=== PATIENT | female | born 1930 | race Caucasian/White ===

== ENCOUNTER 2017-01-21 14:06 | Observation (INO) ==
--- OUTSIDE RECORDS SUMMARY | 2017-01-21 14:21 | External Medical Summary | Referral Summary ---
:1930 Author Organization [facility] [place] [address] Care Team Providers Name Role Phone Emory Segundo Primary Care Physician Encounter [facility] Date(s): 07/29/14 - 07/29/14 [facility] [place] [phone] [place] Discharge Disposition: 01-Home or Self Care Attending Physician: Emory Segundo MD Admitting Physician: Emory Segundo MD Vital Signs No data available for this section Problem List Condition Effective Dates Status Health Status Informant Allergic rhinitis(Confirmed) Active Abscess or cellulitis, toe(Confirmed) Active Cellulitis and abscess of Active toe(Confirmed) Chicken pox(Confirmed) Active Enthesopathy of ankle and tarsus, Active unspecified(Confirmed) Hay fever(Confirmed) Active Hematuria(Confirmed) Active High cholesterol(Confirmed) Active Hypertension(Confirmed) Active Hypertriglyceridemia(Confirmed) Active Measles(Confirmed) Active Metatarsalgia of right foot(Confirmed) Active Mumps(Confirmed) Active Osteoarthritis(Confirmed) Active Osteoporosis(Confirmed) Active Other hammer toe (acquired)(Confirmed) Active Pneumonia(Confirmed) Active Recurrent UTIs(Confirmed) Active Seropositive rheumatoid Active arthritis(Confirmed) Trigonitis(Confirmed) Active Urethral stenosis(Confirmed) Active Urethral stricture(Confirmed) Active Allergies, Adverse Reactions, Alerts No Known Allergies Medications Adalat CC 30 mg oral tablet, extended release See Instructions, TAKE 1 TABLET (30MG) BY ORAL ROUTE EVERY DAY, # 60 unknown unit, 2 Refill(s), eRx:[id number], TAKE 1 TABLET (30MG) BY ORAL ROUTE EVERY DAY Start Date: 08/04/14 Status: Orderedalendronate 70 mg oral tablet 70 mg 1 tabs, Oral, qWeek, 8 oz plain water, at least 30 mins before first food , beverage, or medication of the day. upright 30 mins., # 5 tabs, 2 Refill(s), Pharmacy: [facility] [id number], 1 tabs Oral qWeek,Instr:8 oz plain water, at least 30 m... Start Date: 01/22/15 Status: Orderedatenolol 50 mg oral tablet 1/2 tabs, Oral, Daily, 0 Refill(s) Start Date: 01/09/15 Status: OrderedFiberCon 625 mg oral tablet See Instructions, take 1 daily BID, 0 Refill(s) Start Date: 07/07/13 Status: Orderedfolic acid 0.8 mg oral tablet 1.6 mg 2 tabs, Oral, Daily, 0 Refill(s) Start Date: 09/11/14 Status: Orderedgemfibrozil 600 mg oral tablet See Instructions, TAKE 1 TABLET BY MOUTH TWICE A DAY. NEEDS APPT WITH PCP PRIOR TO REFILL, # 60 tabs, 5 Refill(s), eRx: [facility] [id number], TAKE 1 TABLET BY MOUTH TWICE A DAY. NEEDS APPT WITH PCP PRIOR TO REFILL Start Date: 08/04/14 Status: OrderedImodium A-D See Instructions, 2 mg Oral 2 hours after breakfast, 0 Refill(s) Start Date: 07/07/13 Status: Orderedmethotrexate 25 mg/mL injectable solution 10 mg, IntraMuscular, qWeek, 0 Refill(s) Start Date: 01/14/15 Status: OrderedVitamin D3 2,000 Intl_Units, Oral, Daily, 0 Refill(s) Start Date: 07/25/14 Status: Ordered Results No data available for this section Immunizations Vaccine Date Refusal Reason influenza virus vaccine, inactivated 12/16/14 influenza virus vaccine, live 11/05/12 influenza virus vaccine, live 12/02/11 Procedures Procedure Date Related Diagnosis Body Site cysto, 3rd collagen implant 07/22/09 cysto, 2nd collagen implant 06/29/09 cysto, 1st collagen implant 06/15/09 Cystoscopy, urethral calibration, and dilatation 10/01/07 hydrodistention, and SLT laser vaporation 10/01/07 cyst, hydrodistention, calbration 2007 Cystourethroscopy, and urethral calibration 05/10/00 cyst, hydrodistention, calbration 2000 Hysterectomy 1960 removal of ganglion Thyroidectomy Social History Social History Type Response Smoking Status Former smoker; Type: Cigarettes; Tobacco use per day: Less than Pack; Number of years: 45; Started at age: 21; Stopped at age: 66 Assessment and Plan Extracted from: Title: Ambulatory Patient Education Author: Emory Segundo MD Date: Family Medicine Cellulitis Cellulitis is an infection of the skin and the tissue beneath it. The infected area is usually red and tender. Cellulitis occurs most often in the arms and lower legs. CAUSES Cellulitis is caused by bacteria that enter the skin through cracks or cuts in the skin. The most common types of bacteria that cause cellulitis are Staphylococcus and Streptococcus. SYMPTOMS Redness and warmth. Swelling. Tenderness or pain. Fever. DIAGNOSIS Your caregiver can usually determine what is wrong based on a physical exam. Blood tests may also be done. TREATMENT Treatment usually involves taking an antibiotic medicine. HOME CARE INSTRUCTIONS Take your antibiotics as directed. Finish them even if you start to feel better. Keep the infected arm or leg elevated to reduce swelling. Apply a warm cloth to the affected area up to 4 times per day to relieve pain. Only take [id number] or prescription medicines for pain, discomfort , or fever as directed by your caregiver. Keep all follow-up appointments as directed by your caregiver. SEEK MEDICAL CARE IF: You notice red streaks coming from the infected area. Your red area gets larger or turns dark in color. Your bone or joint underneath the infected area becomes painful after the skin has healed. Your infection returns in the same area or another area. You notice a swollen bump in the infected area. You develop new symptoms. SEEK IMMEDIATE MEDICAL CARE IF: You have a fever. You feel very sleepy. You develop vomiting or diarrhea. You have a general ill feeling (malaise ) with muscle aches and pains. MAKE SURE YOU: Understand these instructions. Will watch your condition. Will get help right away if you are not doing well or get worse. Document Released: 11/02/2005 Document Revised: 07/24/2012 Document Reviewed: 04/09/2012 ExitCare Patient Information 2014 [employer]. No follow up information was provided. Extracted from: Title: Office Visit Note Author: Emory Segundo MD Date: 07/29/14 Assessment/Plan Abscess or cellulitis, toe Continue with the present treatment. Will follow up on Monday of next week. If the infection has cleared then she may be able to start the new medication that Dr. Ayon wants her to start taking. Ordered: Office Visit Level 3 Est 25027
--- OUTSIDE RECORDS SUMMARY | 2017-01-21 14:22 | External Medical Summary | Referral Summary ---
:1930 Author Organization [facility] Address [address] [place] [address] [place] [phone] Care Team Providers Name Role Phone Emory Segundo Primary Care Physician Encounter [facility] Date(s): 07/08/14 - 07/08/14 [facility] [address] [place] [address] [place] [phone] [place] Discharge Diagnosis: Recurrent UTI Discharge Disposition: 01-Home or Self Care Attending Physician: Yaw Brambila JR, MD Admitting Physician: Yaw Brambila JR, MD Referring Physician: Emory Segundo MD Vital Signs Most recent to oldest [Reference Range]: 1 Peripheral Pulse Rate [60-100 bpm] 60 bpm (07/08/14 11:27 AM) Blood Pressure [90-140/60-90 mmHg] 130/72 mmHg (07/08/14 11:27 AM) SpO2 96 % (07/08/14 11:27 AM) Problem List Condition Effective Dates Status Health [...] DAY, # 60 unknown unit, 2 Refill(s), eRx:[facility] [id number], TAKE 1 TABLET (30MG) BY ORAL ROUTE EVERY DAY Start Date: 08/04/14 Status: Orderedalendronate 70 mg oral tablet 70 mg 1 tabs, Oral, qWeek, 8 oz plain water, at least 30 mins before first food , beverage, or medication of the day. upright 30 mins., # 5 tabs, 2 Refill(s) Start Date: 01/09/15 Status: Orderedatenolol 50 mg oral tablet 1/2 [...] REFILL, # 60 tabs, 5 Refill(s), eRx: [facility] [id number], TAKE 1 TABLET BY MOUTH TWICE A DAY. NEEDS APPT WITH PCP PRIOR TO REFILL Start Date: 08/04/14 Status: OrderedImodium A-D See Instructions, 2 mg Oral 2 hours after breakfast, 0 Refill(s) Start Date: 07/07/13 Status: Orderedmethotrexate 25 mg/mL injectable solution 12.5 mg, IntraMuscular, qWeek, 0 Refill(s) Start Date: 01/14/15 Status: OrderedVitamin D3 2,000 Intl_Units, Oral, Daily, 0 Refill(s) Start Date: 07/25/14 Status: Ordered Results Urinalysis Most recent to oldest [Reference Range]: 1 UA Color Yellow (07/08/14 11:25 AM) UA Appear Sl Cloudy (07/08/14 11:25 AM) UA pH [5.0-8.0] 6.0 (07/08/14 11:25 AM) UA Leuk Est [Negative] Trace *ABN* (07/08/14 11:25 AM) UA Nitrite [Negative] Positive *ABN* (07/08/14 11:25 AM) UA Protein [Negative] Negative (07/08/14 11:25 AM) UA Glucose [Negative] Negative (07/08/14 11:25 AM) UA Ketones [Negative] Negative (07/08/14 11:25 AM) UA Urobilinogen 0.2 mg/dL (07/08/14 11:25 AM) UA Bili [Negative] Negative (07/08/14 11:25 AM) UA Blood Negative (07/08/14 11:25 AM) UA Spec Grav [1.003-1.030] 1.015 (07/08/14 11:25 AM) Type Clean Catch (07/08/14 11:25 AM) UA WBC [0-4] 2-4 (07/08/14 11:25 AM) UA RBC [0-2] None seen (07/08/14 11:25 AM) Epithelial Cells 2-5 (07/08/14 11:25 AM) UA Bacteria Numerous *ABN* (07/08/14 11:25 AM) Microbiology Reports TEST:Urine Culture STATUS:Auth (Verified) BODY SITE: SOURCE:Urine COLLECTED DATE/TIME:07/08/14 11:25 AMUrine CultureCitrobacter freundii >100,000 cfu/ml ORGANISM:Citrobacter freundii Immunizations Vaccine Date Refusal Reason influenza virus [...] Extracted from: Title: Ambulatory Patient Education Author: Yaw Brambila JR, MD Date: 07/08/14 Follow Up With: Where: When: Emory Segundo [address] [place] [address] [address]; Via [place], [place] [id number] Business (1) Within 3 to 5 days Comments: Follow Up With: Where: When: Yaw Brambila [address]; [facility], [place] [id number] Business (1) In 6 months 01/07/2015 Comments: Extracted from: Title: Office Visit Note Author: Yaw Brambila JR, MD Date: 07/08/14 Assessment/Plan Recurrent UTI Urinalysis ordered today. There is no rebound blood cells present. There is few white blood cells. There is bacteria present. Will wait for the report of urine culture done todanette english, and if urine culture is negative for infection I will see her again in 6 months otherwise it infection is present will treat accordingly. Drink plenty of fluids. 15 minute face to face visit with 2/3 of the visit devoted to counseling. Ordered: Office Visit Level 3 Est 35945 Orders: Urine Culture
--- OUTSIDE RECORDS SUMMARY | 2017-01-21 14:22 | External Medical Summary | Referral Summary ---
:1930 Author Organization [facility], Rhe[facility] Address [address] [place] [address] [place] [phone] Care Team Providers Name Role Phone Sanya Emory Jessica Primary Care Physician Encounter [facility] [id number] Date(s): 11/06/14 - 11/06/14 [facility], [address] [place] [phone] [place] Discharge Diagnosis: Encounter for long-term (current) use of high-risk medication Discharge Diagnosis: Osteoporosis Discharge Diagnosis: Seropositive rheumatoid arthritis of multiple sites Discharge Disposition: 01-Home or Self Care Attending Physician: Silvia Ayon MD Admitting Physician: Silvia Ayon MD Vital Signs Most recent to oldest [Reference Range]: 1 Peripheral Pulse Rate [60-100 bpm] 87 bpm (11/06/14 3:02 PM) Blood Pressure [90-140/60-90 mmHg] 162/83 mmHg *HI* (11/06/14 3:02 PM) Problem List Condition Effective Dates Status Health [...] ROUTE EVERY DAY, # 60 unknown unit, 4 Refill(s), eRx:[facility] [id number], TAKE 1 TABLET (30MG) BY ORAL ROUTE EVERY DAY Start Date: 04/13/15 Status: Orderedalendronate 70 mg oral tablet See Instructions, 1 TABS ORAL QWEEK,INSTR:8 OZ PLAIN WATER, AT LEAST 30 MINS BEFORE FIRST FOOD, BEVERAGE, OR MEDICATION OF THE DAY. UPRIGHT 30 MINS., # 5 tabs, 2 Refill(s), eRx: [facility] [id number], 1 TABS ORAL QWEEK,INSTR:8 OZ PLAIN WATER, AT... Start Date: 04/23/15 Status: Orderedatenolol 50 mg oral tablet 1/2 tabs, Oral, Daily, 0 Refill(s) Start Date: 01/09/15 Status: OrderedFiberCon 625 mg oral tablet See Instructions, take 1 daily BID, 0 Refill(s) Start Date: 07/07/13 Status: Orderedfolic acid 0.8 mg oral tablet 1.6 mg 2 tabs, Oral, Daily, 0 Refill(s) Start Date: 09/11/14 Status: Orderedgemfibrozil 600 mg oral tablet See Instructions, 1 TABS ORAL BID,INSTR:LAST FILL. PT. NEEDS AN APPT., # 60 tabs , eRx: [facility] [id number], 1 TABS ORAL BID,INSTR:LAST FILL. PT. NEEDS AN APPT. Start Date: 05/11/15 Status: OrderedImodium A-D See Instructions, 2 mg Oral 2 hours after breakfast, 0 Refill(s) Start Date: 07/07/13 Status: Orderedmethotrexate 2.5 mg oral tablet See Instructions, 4 TABS ORAL QWEEK, # 20 tabs, 3 Refill(s), Pharmacy: [facility] [id number], please note change in dose and disregard prior script. deactivate prior dose. Thank you., 4 TABS ORAL QWEEK Start Date: 04/23/15 Status: OrderedVitamin D3 2,000 Intl_Units, Oral, Daily, 0 Refill(s) Start Date: 07/25/14 Status: Ordered Results Hematology Most recent to oldest [Reference Range]: 1 WBC [4.8-10.8 10*3/uL] 6.1 10*3/uL (11/06/14 3:41 PM) RBC [4.00-5.20] 3.53 *LOW* (11/06/14 3:41 PM) Hgb [12.0-16.0 gm/dL] 11.0 gm/dL *LOW* (11/06/14 3:41 PM) Hct [37.0-47.0 %] 33.6 % *LOW* (11/06/14 3:41 PM) MCV [82.0-99.0 fL] 95.2 fL (11/06/14 3:41 PM) MCH [27.0-32.0 pg] 31.2 pg (11/06/14 3:41 PM) MCHC [32.0-36.0 gm/dL] 32.7 gm/dL (11/06/14 3:41 PM) RDW [11.5-14.5 %] 17.4 % *HI* (11/06/14 3:41 PM) Platelet [150-400 10*3/uL] 356 10*3/uL (11/06/14 3:41 PM) MPV [8.8-14.8 fL] 9.5 fL (11/06/14 3:41 PM) Immature Granulocytes [0.0-1.0 %] 0.3 % (11/06/14 3:41 PM) Neutrophils [51-75 %] 61 % (11/06/14 3:41 PM) Lymphocytes [20-46 %] 24 % (11/06/14 3:41 PM) Monocytes [4-11 %] 11 % (11/06/14 3:41 PM) Eosinophils [0-4 %] 4 % (11/06/14 3:41 PM) Basophils [0-2 %] 1 % (11/06/14 3:41 PM) Neutro Absolute [1.90-7.00 10*3] 3.71 10*3 (11/06/14 3:41 PM) Lymph Absolute [0.80-3.30 10*3] 1.44 10*3 (11/06/14 3:41 PM) [place] Absolute [0.30-1.00 10*3] 0.64 10*3 (11/06/14 3:41 PM) Eos Absolute [0.00-0.50 10*3] 0.26 10*3 (11/06/14 3:41 PM) Baso Absolute [0.00-0.20 10*3] 0.04 10*3 (11/06/14 3:41 PM) Chemistry Most recent to oldest [Reference Range]: 1 Sodium Lvl [135-144 mEq/L] 141 mEq/L (11/06/14 3:41 PM) Potassium Lvl [3.5-5.2 mEq/L] 4.4 mEq/L (11/06/14 3:41 PM) Chloride [99-111 mEq/L] 106 mEq/L (11/06/14 3:41 PM) CO2 [22-31 mEq/L] 24 mEq/L (11/06/14 3:41 PM) AGAP [3-20] 11 (11/06/14 3:41 PM) BUN [10-20 mg/dL] 21 mg/dL *HI* (11/06/14 3:41 PM) Glucose Lvl [70-99 mg/dL] 135 mg/dL *HI* (11/06/14 3:41 PM) Creatinine Lvl [0.57-1.11 mg/dL] 1.11 mg/dL (11/06/14 3:41 PM) eGFR [>60 mL/min] 47 mL/min 1 *ABN* (11/06/14 3:41 PM) Calcium Lvl [8.9-10.5 mg/dL] 9.6 mg/dL (11/06/14 3:41 PM) Albumin Lvl [3.4-4.8 gm/dL] 4.4 gm/dL (11/06/14 3:41 PM) Total Protein [6.2-8.1 gm/dL] 7.3 gm/dL (11/06/14 3:41 PM) Globulin [1.8-4.0 gm/dL] 2.9 gm/dL (11/06/14 3:41 PM) ALT [0-55 U/L] 30 U/L (11/06/14 3:41 PM) AST [5-34 U/L] 43 U/L *HI* (11/06/14 3:41 PM) Alk Phos [40-150 U/L] 126 U/L (11/06/14 3:41 PM) Bili Total [0.2-1.2 mg/dL] 0.4 mg/dL (11/06/14 3:41 PM) 1Result Comment: Multiply eGFR results by 1.21 for race. Immunizations Vaccine Date Refusal Reason influenza virus [...] 66 Assessment and Plan Extracted from: Title: Office Visit Note Author: Silvia Ayon MD Date: 11/06/14 Assessment/Plan 1.Seropositive rheumatoid arthritis of multiple sites She is improved. By history, she she may have some mild continued active disease. I will check a CRP today. We will make a small adjustmen t of methotrexate to15 mg. continue folic acid. Ordered: BD Bone Density DEXA Axial Skeleton C-Reactive Protein (CRP) CBC w/ Differential Comprehensive Metabolic Panel 2.Osteoporosis We will repeat her bone density and discuss a follow appointment. Ordered: BD Bone Density DEXA Axial Skeleton 3.Encounter for long-term (current) use of high-risk medication I will check her blood counts and liver tests today. Otherwise we will toxicity noted. Follow-up in 2 months.
--- OUTSIDE RECORDS SUMMARY | 2017-01-21 14:22 | External Medical Summary | Referral Summary ---
:1930 Author Organization [facility], [facility] Address [address] [place] [address] [place] [phone] Care Team Providers Name Role Phone Segundo Emory Lopez Primary Care Physician Encounter [facility] Date(s): 01/14/16 - 01/14/16 [facility] Rhe[facility] [address] [place] [address] [place] [phone] [place] Discharge Diagnosis: Other rheumatoid arthritis with rheumatoid factor of multiple sites Discharge Disposition: 01-Home or Self Care Attending Physician: Silvia Ayon MD Admitting Physician: Silvia Ayon MD Vital Signs Most recent to oldest [Reference Range]: 1 Peripheral Pulse Rate [60-100 bpm] 68 bpm (01/14/16 2:42 PM) Blood Pressure [90-140/60-90 mmHg] 141/65 mmHg *HI* (01/14/16 2:42 PM) Problem List Condition Effective Dates Status [...] Osteoporosis(Confirmed) Active Other hammer toe (acquired)(Confirmed) Active Peptic ulcer disease(Confirmed) Active Pneumonia(Confirmed) Active Recurrent UTIs(Confirmed) Active Seropositive rheumatoid Active arthritis(Confirmed) Trigonitis(Confirmed) Active Urethral stenosis(Confirmed) Active Urethral stricture(Confirmed) Active Allergies, Adverse Reactions, Alerts No Known Allergies Medications Adalat CC 30 mg oral tablet, extended release See Instructions, TAKE 1 TABLET (30MG) BY ORAL ROUTE EVERY DAY, # 60 unknown unit, 4 Refill(s), eRx:[facility] [id number], TAKE 1 TABLET (30MG) BY ORAL ROUTE EVERY DAY Start Date: 04/13/15 Status: Orderedatenolol 50 mg oral tablet See Instructions, TAKE 1 TABLET BY MOUTH TWICE DAILY, # 180 tabs, [facility], TAKE 1 TABLET BY MOUTH TWICE DAILY Start Date: 12/14/15 Status: Orderedfolic acid 0.8 mg oral tablet 1.6 mg 2 tabs, Oral, Daily, 0 Refill(s) Start Date: 09/11/14 Status: Orderedgemfibrozil 600 mg oral tablet See Instructions, TAKE 1 TABLET BY MOUTH TWICE DAILY, # 60 tabs, eRx: [facility] [id number], TAKE 1 TABLET BY MOUTH TWICE DAILY Start Date: 12/21/15 Status: Orderedmethotrexate 2.5 mg oral tablet See Instructions, 4 TABS ORAL QWEEK, # 20 tabs, 3 Refill(s), Pharmacy: [facility], please note change in dose and disregard prior script. deactivate prior dose. Thank you., 4 TABS ORAL QWEEK Start Date: 08/27/15 Status: OrderedMiraLax oral powder for reconstitution 17 g, Oral, Daily, dissolve in water before taking, # 255 g, 0 Refill(s) Start Date: 07/08/15 Status: OrderedVitamin D3 2,000 Intl_Units, Oral, Daily, 0 Refill(s) Start Date: 07/25/14 Status: Ordered Results No data available for this section Immunizations Vaccine Date Refusal Reason influenza virus vaccine, inactivated 12/29/15 influenza virus vaccine, inactivated 12/16/14 influenza virus [...] Visit Note Author: Silvia Ayon MD Date: 01/14/16 Assessment/Plan 1.Other rheumatoid arthritis with rheumatoid factor of multiple sites She is doing well. I diddiscuss that she may noticeas she is off the methotrexate for a longer period timethat she may start have increased joint pain. Currently she does not want to start any other medications. Follow-up in 4 months or sooner if needed. Addendum by Silvia Ayon MD on January we discussed diclofenac gel for her knee. 2015 15:05:39 [employer]ING [employer] She will let us know if she wants to try it
--- OUTSIDE RECORDS SUMMARY | 2017-01-21 14:22 | External Medical Summary | Referral Summary ---
:1930 Author Organization [facility], Rhe[facility] Address [address] [place] [address] [place] [phone] Care Team Providers Name Role Phone Emory Segundo Primary Care Physician Encounter [facility] Date(s): 07/25/14 - 07/25/14 [facility], [address] [place] [phone] [place] Discharge Diagnosis: Fatigue Discharge Diagnosis: Left knee pain Discharge Diagnosis: Rheumatoid arthritis Discharge Disposition: 01-Home or Self Care Attending Physician: Silvia Ayon MD Admitting Physician: Silvia Ayon MD Referring Physician: Emory Segundo MD Vital Signs Most recent to oldest [Reference Range]: 1 Peripheral Pulse Rate [60-100 bpm] 60 bpm (07/25/14 9:37 AM) Blood Pressure [90-140/60-90 mmHg] 153/76 mmHg *HI* (07/25/14 9:37 AM) Problem List Condition Effective Dates Status [...] DAY, # 60 unknown unit, 2 Refill(s), eRx:[facility] [id number], TAKE 1 TABLET (30MG) BY ORAL ROUTE EVERY DAY Start Date: 08/04/14 Status: Orderedalendronate 70 mg oral tablet 70 mg 1 tabs, Oral, qWeek, 8 oz plain water, at least 30 mins before first food , beverage, or medication of the day. upright 30 mins., # 5 tabs, 2 Refill(s), Pharmacy: [facility] 32036, 1 tabs Oral qWeek,Instr:8 oz plain water, [...] REFILL, # 60 tabs, 5 Refill(s), eRx: [facility] [id number], TAKE 1 TABLET BY MOUTH TWICE A [...] Most recent to oldest [Reference Range]: 1 Sed Rate [0-23 mm/hr] 67 mm/hr *HI* (07/25/14 12:05 PM) Chemistry Most recent to oldest [Reference Range]: 1 Hep A IgM Negative (07/25/14 12:05 PM) Hep Bs Ag Negative (07/25/14 12:05 PM) Hep C Ab Negative (07/25/14 12:05 PM) Hep B Core IgM Negative (07/25/14 12:05 PM) Immunizations Vaccine Date Refusal Reason influenza virus [...] Visit Note Author: Silvia Ayon MD Date: 07/25/14 Assessment/Plan 1.Rheumatoid arthritis She does have findings of rheumatoid arthritison examination of her hands in particular her right hand. I discussed the pathogenesis of rheumatoid arthritis and management . I discussed that we treat this with immunosuppressive medications and in particular I discussed use of methotrexate. They were given a handout from the [employer] [facility] on medication. I discussed that isan immunosuppressive medication with risk of infection malignancy, cytopenias, pulmonary toxicity, hepatotoxicity etc. She appears have an infection on her right foot and she w as seen by her primary care doctor today. Once this has been cleared we can start methotrexate. She hasbaseline labs and I will also check inflammatory markers, rheumatoid factor and also x-ray her hands and feet. Ordered: C-Reactive Protein (CRP) Rheumatoid Factor Sedimentation Rate XR Foot Complete Bilateral XR Hand Complete Bilateral 2.Left knee pain I will order x-ray of her left knee to determine the degree of osteoarthritis she has that may be contributing. Ordered: XR Knee Complete Left XR Knee Standing AP Bilateral 3.Fatigue I willorder ahepatitis panel. We will start methotrexate after her infection has been cleared. Ordered: Hepatitis Panel
--- OUTSIDE RECORDS SUMMARY | 2017-01-21 14:22 | External Medical Summary | Referral Summary ---
:1930 Author Organization [facility] Address [address] [place] [address] [place] [phone] Care Team Providers Name Role Phone Emroy Segundo Primary Care Physician Encounter VC Date(s): 09/02/15 - 09/02/15 [facility], [address] [place] [phone] [place] Discharge Diagnosis: Essential hypertension Discharge Diagnosis: Mixed hyperlipidemia Discharge Diagnosis: RA (rheumatoid arthritis) Discharge Diagnosis: Status post fracture of hip Discharge Disposition: 01-Home or Self Care Attending Physician: Hao Amaya MD Admitting Physician: Hao Amaya MD Referring Physician: Emory Segundo MD Vital Signs Most recent to oldest [Reference Range]: 1 Peripheral Pulse Rate [60-100 bpm] 76 bpm (09/02/15 3:32 PM) Blood Pressure [90-140/60-90 mmHg] 118/54 mmHg (09/02/15 3:32 PM) Problem List Condition Effective Dates Status [...] DAY, # 60 unknown unit, 4 Refill(s), [id number], TAKE 1 TABLET (30MG) BY ORAL ROUTE EVERY DAY Start Date: 04/13/15 Status: Orderedatenolol 50 mg oral tablet 1/2 tabs, Oral, Daily, 0 Refill(s) Start Date: 01/09/15 Status: OrderedCipro 250 mg oral tablet 250 mg 1 tabs, Oral, q12hr, X 10 days, # 20 tabs, 0 Refill(s), [facility] tabs Oral q12hr,x10 days Start Date: 08/31/15 Stop Date: 09/10/15 Status: Orderedfolic acid 0.8 mg oral tablet 1.6 mg 2 tabs, Oral, Daily, 0 Refill(s) Start Date: 09/11/14 Status: Orderedgemfibrozil 600 mg oral tablet See Instructions, TAKE 1 TABLET BY MOUTH TWICE DAILY, # 60 tabs, 2 Refill(s), [facility] [address], TAKE 1 TABLET BY MOUTH TWICE DAILY Start Date: 07/14/15 Status: Orderedmethotrexate 2.5 mg oral tablet See Instructions, 4 TABS ORAL QWEEK, # 20 tabs, 3 Refill(s), [facility], please note change in dose and disregard prior script. deactivate prior dose. Thank you., 4 TABS ORAL QWEEK Start Date: 08/27/15 Status: OrderedMiraLax oral powder for reconstitution 17 g, Oral, Daily, dissolve in water before taking, # 255 g, 0 Refill(s) Start Date: 07/08/15 Status: Orderedranitidine 150 mg oral tablet 150 mg 1 tabs, Oral, BID, # 180 tabs, 0 Refill(s) Start Date: 07/21/15 Status: OrderedVitamin D3 2,000 Intl_Units, Oral, Daily, [...] Extracted from: Title: Office Visit Note Author: Hao Amaya MD Date: 09/02/15 Assessment/Plan 1.Essential hypertension 2.Mixed hyperlipidemia 3.RA (rheumatoid arthritis) 4.Status post fracture of hip Discussion: From a cardiac point of view, she appears to be doing very well. I didn't make any changes in her therapy. She is have a follow-up visit in 1 yearunless she has difficulty before then.
--- OUTSIDE RECORDS SUMMARY | 2017-01-21 14:22 | External Medical Summary | Referral Summary ---
:1930 Author Organization [facility], Rheumatology Address [address] [place] [address] [place] [phone] Care Team Providers Name Role Phone Emory Segundo Primary Care Physician Encounter VC Date(s): 09/11/14 - 09/11/14 [facility], [address] [place] [phone] [place] Discharge Diagnosis: Rheumatoid arthritis Discharge Diagnosis: Encounter for long-term (current) use of high-risk medication Discharge Disposition: 01-Home or Self Care Attending Physician: Silvia Ayon MD Admitting Physician: Silvia Ayon MD Referring Physician: Emory Segundo MD Vital Signs Most recent to oldest [Reference Range]: 1 Peripheral Pulse Rate [60-100 bpm] 63 bpm (09/11/14 3:02 PM) Respiratory Rate [14-20 br/min] 18 br/min (09/11/14 3:02 PM) Blood Pressure [90-140/60-90 mmHg] 153/79 mmHg *HI* (09/11/14 3:02 PM) Problem List Condition Effective Dates [...] ROUTE EVERY DAY, # 60 unknown unit, [facility] [id number], TAKE 1 TABLET (30MG) BY ORAL ROUTE EVERY DAY Start Date: 02/09/15 Status: Orderedalendronate 70 mg oral tablet 70 mg 1 tabs, Oral, qWeek, 8 oz plain water, at least 30 mins before first food , beverage, or medication of the day. upright 30 mins., # 5 tabs, 2 Refill(s), [facility] [address], 1 tabs Oral qWeek,Instr:8 oz plain water, [...] AN APPT., # 60 tabs , [facility] [address], 1 TABS ORAL BID,INSTR:LAST FILL. PT. NEEDS AN APPT. Start Date: 03/16/15 Status: Orderedgemfibrozil 600 mg oral tablet 600 mg 1 tabs, Oral, BID, LAST FILL. PT. NEEDS AN APPT., # 60 tabs, 0 Refill(s) , Pharmacy: [facility] 54307, 1 tabs Oral BID,Instr:LAST FILL. PT. NEEDS AN APPT. Start Date: 02/10/15 Status: OrderedImodium A-D See Instructions, 2 mg Oral 2 hours after breakfast, 0 Refill(s) Start Date: 07/07/13 Status: Orderedmethotrexate 25 mg/mL injectable solution 10 mg, IntraMuscular, qWeek, 0 Refill(s) Start Date: 01/14/15 Status: OrderedVitamin D3 2,000 Intl_Units, Oral, Daily, 0 Refill(s) Start Date: 07/25/14 Status: Ordered Results Hematology Most recent to oldest [Reference Range]: 1 WBC [4.8-10.8 10*3/uL] 7.6 10*3/uL (09/11/14 3:30 PM) RBC [4.00-5.20 10*6/uL] 3.74 10*6/uL *LOW* (09/11/14 3:30 PM) Hgb [12.0-16.0 gm/dL] 10.8 gm/dL *LOW* (09/11/14 3:30 PM) Hct [37.0-47.0 %] 34.8 % *LOW* (09/11/14 3:30 PM) MCV [82.0-99.0 fL] 93.0 fL (09/11/14 3:30 PM) MCH [27.0-32.0 pg] 28.9 pg (09/11/14 3:30 PM) MCHC [32.0-36.0 gm/dL] 31.0 gm/dL *LOW* (09/11/14 3:30 PM) RDW [11.5-14.5 %] 15.3 % *HI* (09/11/14 3:30 PM) Platelet [150-400 10*3/uL] 410 10*3/uL *HI* (09/11/14 3:30 PM) MPV [8.8-14.8 fL] 9.4 fL (09/11/14 3:30 PM) Immature Granulocytes [0.0-1.0 %] 0.7 % (09/11/14 3:30 PM) Neutrophils [51-75 %] 62 % (09/11/14 3:30 PM) Lymphocytes [20-46 %] 19 % *LOW* (09/11/14 3:30 PM) Monocytes [4-11 %] 11 % (09/11/14 3:30 PM) Eosinophils [0-4 %] 7 % *HI* (09/11/14 3:30 PM) Basophils [0-2 %] 1 % (09/11/14 3:30 PM) Neutro Absolute [1.90-7.00 10*3] 4.76 10*3 (09/11/14 3:30 PM) Lymph Absolute [0.80-3.30 10*3] 1.47 10*3 (09/11/14 3:30 PM) Warrick Absolute [0.30-1.00 10*3] 0.80 10*3 (09/11/14 3:30 PM) Eos Absolute [0.00-0.50 10*3] 0.51 10*3 *HI* (09/11/14 3:30 PM) Baso Absolute [0.00-0.20 10*3] 0.06 10*3 (09/11/14 3:30 PM) Chemistry Most recent to oldest [Reference Range]: 1 Sodium Lvl [135-144 mEq/L] 141 mEq/L (09/11/14 3:30 PM) Potassium Lvl [3.5-5.2 mEq/L] 4.2 mEq/L (09/11/14 3:30 PM) Chloride [99-111 mEq/L] 108 mEq/L (09/11/14 3:30 PM) CO2 [22-31 mEq/L] 22 mEq/L (09/11/14 3:30 PM) AGAP [3-20] 11 (09/11/14 3:30 PM) BUN [10-20 mg/dL] 18 mg/dL (09/11/14 3:30 PM) Glucose Lvl [70-99 mg/dL] 82 mg/dL (09/11/14 3:30 PM) Creatinine Lvl [0.57-1.11 mg/dL] 0.88 mg/dL (09/11/14 3:30 PM) eGFR [>60 mL/min] >60 mL/min 1 (09/11/14 3:30 PM) Calcium Lvl [8.9-10.5 mg/dL] 9.1 mg/dL (09/11/14 3:30 PM) Albumin Lvl [3.4-4.8 gm/dL] 4.2 gm/dL (09/11/14 3:30 PM) Total Protein [6.2-8.1 gm/dL] 7.2 gm/dL (09/11/14 3:30 PM) Globulin [1.8-4.0 gm/dL] 3.0 gm/dL (09/11/14 3:30 PM) ALT [0-55 U/L] 25 U/L (09/11/14 3:30 PM) AST [5-34 U/L] 34 U/L (09/11/14 3:30 PM) Alk Phos [40-150 U/L] 140 U/L (09/11/14 3:30 PM) Bili Total [0.2-1.2 mg/dL] 0.3 mg/dL (09/11/14 3:30 PM) 1Result Comment: Multiply eGFR results by [...] Visit Note Author: Silvia Ayon MD Date: 09/11/14 Assessment/Plan 1.Rheumatoid arthritis She appears to be much better. We will maintain the methotrexate 12.5 mg. I will check a CRP today. We can consider further titration the medication as we have to. S he does take naproxen twice daily which she can continue. She will take the folic acid [id number]. Suggest that she can take 2 of 800 mcgs. Ordered: C-Reactive Protein (CRP) CBC w/ Differential Comprehensive Metabolic Panel 2.Encounter for long-term (current) use of high-risk medication I will check her blood counts liver tests today. Otherwise no toxicities noted. Follow-up in 2 months or sooner if needed.. Orders: methotrexate, 12.5 mg 5 tabs, Oral, qWeek, # 25 tabs, 2 Refill(s), Pharmacy: [facility], 5 tabs Oral qWeek
--- OUTSIDE RECORDS SUMMARY | 2017-01-21 14:22 | External Medical Summary | Referral Summary ---
:1930 Author Organization [facility], U[facility] Address [address] [place] [address] [place] [phone] Care Team Providers Name Role Phone Emory Segundo Primary Care Physician Encounter VC Date(s): 07/08/14 - 07/08/14 [facility] U[facility] [address] [place] [address] [place] [phone] [place] Discharge Diagnosis: Recurrent [...] DAY, # 60 unknown unit, 2 Refill(s), [facility] [address], TAKE 1 TABLET (30MG) BY ORAL ROUTE EVERY DAY Start Date: 08/04/14 Status: Orderedatenolol 50 mg oral tablet 25 mg 0.5 tabs, Oral, Daily, 0 Refill(s) Start Date: 08/12/14 Status: OrderedFiberCon 625 mg oral tablet See [...] REFILL, # 60 tabs, 5 Refill(s), eRx: [facility] [id number], TAKE 1 TABLET BY MOUTH TWICE A DAY. NEEDS APPT WITH PCP PRIOR TO REFILL Start Date: 08/04/14 Status: OrderedImodium A-D See Instructions, 2 mg Oral 2 hours after breakfast, 0 Refill(s) Start Date: 07/07/13 Status: Orderedmethotrexate 2.5 mg oral tablet See Instructions, 5 tabs Oral qWeek on Monday, # 15 tabs, 2 Refill(s), Pharm[facility] : [facility] [address], please note change in dose, deactivate prior., 6 tabs Oral qWeek Start Date: 11/06/14 Status: OrderedVitamin D3 2,000 Intl_Units, Oral, Daily, [...] Vaccine Date Refusal Reason influenza virus vaccine, live 11/05/12 influenza virus [...] Follow Up With: Where: When: Emory Segundo [address] [place] [address] Drive; [facility] [place] [address] Business (1) Within 3 to 5 days Comments: Follow Up With: Where: When: Yaw Brambila [address] [place] [address] Drive; [facility] [place] [address] Business (1) In 6 months 01/07/2015 Comments: Extracted from: Title: Office Visit Note Author: Yaw Brambila JR, MD Date: 07/08/14 Assessment/Plan Recurrent UTI Urinalysis ordered today. There is no rebound blood cells present. There is few white blood cells. There is bacteria present. Will wait for the report of urine culture done tod ay, and if urine culture is negative for infection I will see her again in 6 months otherwise it infection is present will treat accordingly. Drink plenty of fluids. 15 minute face to face visit with 2/3 of the visit devoted to counseling. Ordered: Office Visit Level 3 Est 40318 Orders: Urine Culture
--- OUTSIDE RECORDS SUMMARY | 2017-01-21 14:22 | External Medical Summary | Referral Summary ---
:1930 Author Organization [facility], Urology Address [address] [place] [address] [place] [phone] Care Team Providers Name Role Phone Emory Segundo Primary Care Physician Encounter VC Date(s): 06/30/15 - 06/30/15 [facility] Urology [address] [place] [address] [place] [phone] [place] Discharge Diagnosis: RA (rheumatoid arthritis) Discharge Diagnosis: OP (osteoporosis) Discharge Diagnosis: Essential hypertension Discharge Diagnosis: Dysuria Discharge Diagnosis: Acute cystitis Discharge Diagnosis: Dysuria in Discharge Disposition: 01-Home or Self Care Attending Physician: Yaw Brambila JR, MD Admitting Physician: Yaw Brambila JR, MD Referring Physician: Emory Segundo MD Vital Signs Most recent to oldest [Reference Range]: 1 Peripheral Pulse Rate [60-100 bpm] 64 bpm (06/30/15 12:06 PM) Blood Pressure [90-140/60-90 mmHg] 114/52 mmHg (06/30/15 12:06 PM) Mean Arterial Pressure, Cuff 73 mmHg (06/30/15 12:06 PM) Problem List Condition Effective Dates Status [...] DAY, # 60 unknown unit, 4 Refill(s), eRx:[facility] 96368, TAKE 1 TABLET (30MG) BY ORAL ROUTE EVERY DAY Start Date: 04/13/15 Status: Orderedalendronate 70 mg oral tablet See Instructions, 1 TABS ORAL QWEEK,INSTR:8 OZ PLAIN WATER, AT LEAST 30 MINS BEFORE FIRST FOOD, BEVERAGE, OR MEDICATION OF THE DAY. UPRIGHT 30 MINS., # 5 tabs, 2 Refill(s), eRx: [facility] [id number], 1 TABS ORAL QWEEK,INSTR:8 OZ PLAIN WATER, AT... Start Date: 04/23/15 Status: Orderedatenolol 50 mg oral tablet 1/2 tabs, Oral, Daily, 0 Refill(s) Start Date: 01/09/15 Status: OrderedCipro 500 mg oral tablet 500 mg 1 tabs, Oral, q12hr, X 10 days, # 20 tabs, 0 Refill(s), Pharmacy: [facility] 28634,1 tabs Oral q12hr,x10 days Start Date: 06/30/15 Stop Date: 07/10/15 Status: OrderedFiberCon 625 mg oral tablet See Instructions, take 1 daily BID, 0 Refill(s) Start Date: 07/07/13 Status: Orderedfolic acid 0.8 mg oral tablet 1.6 mg 2 tabs, Oral, Daily, 0 Refill(s) Start Date: 09/11/14 Status: Orderedgemfibrozil 600 mg oral tablet See Instructions, TAKE 1 TABLET BY MOUTH TWICE DAILY, # 60 tabs, eRx: [facility] [id number], TAKE 1 TABLET BY MOUTH TWICE DAILY Start Date: 06/09/15 Status: OrderedImodium A-D See Instructions, 2 mg Oral 2 hours after breakfast, 0 Refill(s) Start Date: 07/07/13 Status: Orderedmethotrexate 2.5 mg oral tablet See Instructions, 4 TABS ORAL QWEEK, # 20 tabs, 3 Refill(s), Pharmacy: [facility] 76532, please note change in dose and disregard prior script. deactivate prior dose. Thank you., 4 TABS ORAL QWEEK Start Date: 04/23/15 Status: Orderedphenazopyridine 100 mg oral tablet 100 mg 1 tabs, Oral, TIDPC, with food, # 30 tabs, 1 Refill(s), Pharmacy: [facility] 35545,1 tabs Oral TIDPC,Instr:with food Start Date: 06/30/15 Status: OrderedVitamin D3 2,000 Intl_Units, Oral, Daily, [...] Education Author: Yaw Brambila JR, MD Date: Follow Up With: Where: When: Emory Segundo [address] [place] [address] Drive; [place] [address] Business (1) Within 3 to 5 days Comments: Follow Up With: Where: When: Yaw Brambila [address] [place] [address] Drive; [place] [address] Business ([employer]) Comments: Extracted from: Title: Office Visit Note Author: Yaw Brambila JR, MD Date: 06/30/15 Assessment/Plan 1.Acute cystitis Patient will be started on Cipro 500 mg twice a day for 10 days. Instructed to drink about 8-10 glasses of liquids a day. Recheck in my office in 2 weeks. Ordered: Office Visit Level 3 Est 62534 2.OP (osteoporosis) Continue alendronate 7020 mg tabletonce a week Ordered: Office Visit Level 3 Est 22713 3.RA (rheumatoid arthritis) Continue methotrexate Ordered: Office Visit Level 3 Est 68686 4.Essential hypertension Continue Adalat and atenolol Ordered: Office Visit Level 3 Est 63178 5.Dysuria in This should be only dysuria Ordered: Office Visit Level 3 Est 53606 Dysuria Patient is given prescription of Pyridium 100 mg3 times a day after meals 7 days Ordered: Urinalysis with Culture if Indicated Orders: ciprofloxacin, 500 mg 1 tabs, Oral, q12hr, X 10 days, # 20 tabs, 0 Refill(s), Pharmacy: [facility] 85927, 1 tabs Oral q12hr,x10 days phenazopyridine, 100 mg 1 tabs, Oral, TIDPC, with food, # 30 tabs, 1 Refill(s ), Pharmacy: [facility] 65570, 1 tabs Oral TIDPC,Instr:with food
--- OUTSIDE RECORDS SUMMARY | 2017-01-21 14:22 | External Medical Summary | Referral Summary ---
:1930 [facility] Address [address] [place] [address] [place] [phone] Care Team Providers Name Role Phone Emory Segundo Primary Care Physician Encounter VC Date(s): 08/13/15 - 08/13/15 [facility] [place] [phone] [place] Discharge Disposition: 01-Home or Self Care Attending Physician: Emory Segundo MD Admitting Physician: Emory Segundo MD Vital Signs Most recent to oldest [Reference Range]: 1 Blood Pressure [90-140/60-90 mmHg] 126/60 mmHg (08/13/15 11:05 AM) Problem List Condition Effective Dates Status [...] DAY, # 60 unknown unit, 4 Refill(s), eRx:[facility] 55864, TAKE 1 TABLET (30MG) BY ORAL ROUTE EVERY DAY Start Date: 04/13/15 Status: Orderedalendronate 70 mg oral tablet 70 mg 1 tabs, Oral, qWeek, # 12 tabs, 0 Refill(s) Start Date: 07/21/15 Status: Orderedatenolol 50 mg oral tablet 1/2 tabs, Oral, Daily, 0 Refill(s) Start Date: 01/09/15 Status: Orderedfolic acid 0.8 mg oral tablet 1.6 mg 2 tabs, Oral, Daily, 0 Refill(s) Start Date: 09/11/14 Status: Orderedgemfibrozil 600 mg oral tablet See Instructions, TAKE 1 TABLET BY MOUTH TWICE DAILY, # 60 tabs, 2 Refill(s), eRx: [facility] [address]76, TAKE 1 TABLET BY MOUTH TWICE DAILY Start Date: 07/14/15 Status: Orderedmethotrexate 2.5 mg oral tablet See Instructions, 4 TABS ORAL QWEEK, # 20 tabs, 3 Refill(s), Pharmacy: [facility], please note change in dose and disregard prior script. deactivate prior dose. Thank you., 4 TABS ORAL QWEEK Start Date: 04/23/15 Status: OrderedMiraLax oral powder for reconstitution 17 g, Oral, Daily, dissolve in water before taking, # 255 g, 0 Refill(s) Start Date: 07/08/15 Status: OrderedpredniSONE 10 mg oral tablet See Instructions, 2 tabs oral daily x4 days, then 1 tab oral daily x4 days., # 12 tabs, 0 Refill(s),Pharmacy: [facility] [address], 2 tabs oral daily x4 days, then 1 tab oral daily x4 days. Start Date: 08/13/15 Stop Date: 08/21/15 Status: Orderedranitidine 150 mg oral tablet 150 [...] Stopped at age: 66 Assessment and Plan No data available for this section
--- OUTSIDE RECORDS SUMMARY | 2017-01-21 14:22 | External Medical Summary | Referral Summary ---
:1930 Author [facility] Address [address] [place] [address] [place] [phone] Care Team Providers Name Role Phone Emory Segundo Primary Care Physician Encounter VC Date(s): 12/04/14 - 12/04/14 [facility] [place] [phone] [place] Discharge Disposition: 01-Home or Self Care Attending Physician: Emory Segundo MD Admitting Physician: Emory Segundo MD Vital Signs Most recent to oldest [Reference Range]: 1 Blood Pressure [90-140/60-90 mmHg] 130/64 mmHg (12/04/14 10:14 AM) Problem List Condition Effective Dates Status [...] DAY, # 60 unknown unit, 2 Refill(s), [facility]Rx:[facility] 09[facility], TAKE 1 TABLET (30MG) BY ORAL ROUTE [...] REFILL, # 60 tabs, 5 Refill(s), eRx: [facility] 39262, TAKE 1 TABLET BY MOUTH TWICE A DAY. NEEDS APPT WITH PCP PRIOR TO REFILL Start Date: 08/04/14 Status: OrderedImodium A-D See Instructions, 2 mg Oral 2 hours after breakfast, 0 Refill(s) Start Date: 07/07/13 Status: Orderedmethotrexate 2.5 mg oral tablet See Instructions, 5 tabs Oral qWeek on Monday, # 15 tabs, 2 Refill(s), Pharmacy : [facility] [id number], please note change in dose, deactivate prior., [...]
--- OUTSIDE RECORDS SUMMARY | 2017-01-21 14:22 | External Medical Summary | Referral Summary ---
:1930 Author Organization [facility] Address [address] [place] [address] [place] [phone] Care Team Providers Name Role Phone Emory Segundo Primary Care Physician Encounter VC Date(s): 07/08/14 - 07/08/14 [facility] [address] [place] [address] [place] [phone] [place] Discharge Diagnosis: Recurrent [...] DAY, # 60 unknown unit, 2 Refill(s), [facility] [address], TAKE 1 TABLET (30MG) BY ORAL ROUTE [...] REFILL, # 60 tabs, 5 Refill(s), eRx: [facility] [id number], TAKE 1 TABLET BY MOUTH TWICE A DAY. NEEDS APPT WITH PCP PRIOR TO REFILL Start Date: 08/04/14 Status: OrderedImodium A-D See Instructions, 2 mg Oral 2 hours after breakfast, 0 Refill(s) Start Date: 07/07/13 Status: Orderedmethotrexate 2.5 mg oral tablet See Instructions, 5 tabs Oral qWeek on Monday, # 15 tabs, 2 Refill(s), Pharmacy : [facility] [id number], please note change in dose, deactivate prior., [...] Follow Up With: Where: When: Emory Segundo [address] [place] [address] Drive; [facility] [place] [address] Business (1) Within 3 to 5 days Comments: Follow Up With: Where: When: Yaw Brambila [address] [place] [address] Drive; [facility] [place] [address] Business (1) In 6 months 01/07/2015 Comments: [...] counseling. Ordered: Office Visit Level 3 Est 39211 Orders: Urine Culture
--- OUTSIDE RECORDS SUMMARY | 2017-01-21 14:22 | External Medical Summary | Referral Summary ---
:1930 [facility] Address [address] [place] [address] [place] [address] Care Team Providers Name Role Phone Emory Segundo Primary Care Physician Encounter VC Date(s): 07/25/14 - 07/25/14 [facility] [place] [phone] [place] Discharge Diagnosis: Blister Of Toe Discharge Disposition: 01-Home or Self Care Attending [...] DAY, # 60 unknown unit, 2 Refill(s), [facility] 09[address], TAKE 1 TABLET (30MG) BY ORAL ROUTE EVERY DAY Start Date: 08/04/14 Status: Orderedalendronate 70 mg oral tablet 70 mg 1 tabs, Oral, qWeek, 8 oz plain water, at least 30 mins before first food , beverage, or medication of the day. upright 30 mins., # 5 tabs, 2 Refill(s), Pharmacy: [facility] [address]39[address], 1 tabs Oral qWeek,Instr:8 oz plain water, [...] REFILL, # 60 tabs, 5 Refill(s), eRx: [facility] 82252, TAKE 1 TABLET BY MOUTH TWICE A [...] Refill(s) Start Date: 07/25/14 Status: Ordered Results Microbiology Reports TEST:Wound Culture STATUS:Auth (Verified) BODY SITE:Toe SOURCE:Drainage COLLECTED DATE/TIME:07/25/14 10:00 AMWound CultureNo growth Immunizations Vaccine Date Refusal Reason influenza virus [...] Author: Emory Segundo MD Date: Family Medicine Blisters Blisters are fluid-filled sacs that form within the skin. Common causes of blistering are friction, gutierrez, and exposure to irritating chemicals. The fluid in the blister protects the underlying damaged skin. Most of the time it is not recommended that you open blisters. When a blister is opened, there is an increased chance for infection. Usually, a blister will open on its own. They then dry up and p eel off within 10 days. If the blister is tense and uncomfortable (painful) the fluid may be drained. If it is drained the roof of the blister should be left intact. The draining should only be done by a medical professional under aseptic conditions. Poorly fitting shoes and boots can cause blisters by being too tight or too loose. Wearing extra socks or using tape, bandages, or pads over the blister- prone area helps prevent the problem by reducing friction. Blisters heal more slowly if you have diabetes or if you have problems with your circulation. You need to be careful about medical follow-up to prevent infection. HOME CARE INSTRUCTIONS Protect areas where blisters have formed until the skin is healed. Use a special bandage with a hole cut in the middle around the blister. This reduces pressure and friction. When the blister breaks, tr im off the loose skin and keep the area clean by washing it with soap daily. Soaking the blister or broken-open blister with diluted vinegar twice daily for 15 minutes will dry it up and speed the heali ng. Use 3 tablespoons of white vinegar per quart of water (45 mL white vinegar per liter of water). An antibiotic ointment and a bandage can be used to cover the area after soaking. SEEK MEDICAL CARE IF: You develop increased redness, pain, swelling, or drainage in the blistered area. You develop a pus-like discharge from the blistered area, chills, or a fever. MAKE SURE YOU: Understand these instructions. Will watch your condition. Will get help right away if you are not doing well or get worse. Document Released: 03/02/2005 Document Revised: 04/16/2012 Document Reviewed: 01/28/2009 [facility] [place] Patient Information 2014 [employer] [facility]. No follow up information was provided. Extracted from: Title: Office Visit Note Author: Emory Segundo MD Date: 07/25/14 Assessment/Plan Blister Of Toe Rx for cipro 500mg bid. Keep clean and dry. Ordered: Office Visit Level 3 Est 61377 Cellulitis and abscess of toe Ordered: Office Visit Level 3 Est 24389
--- OUTSIDE RECORDS SUMMARY | 2017-01-21 14:23 | External Medical Summary | Referral Summary ---
:1930 Author Organization [facility] [place] [address] Care Team Providers Name Role Phone Emory Segundo Primary Care Physician Encounter VC Date(s): 08/04/14 - 08/04/14 [facility] [place] [phone] [place] Discharge Disposition: [...] EVERY DAY, # 60 unknown unit, eRx: [facility] [id number], TAKE 1 TABLET (30MG) BY ORAL ROUTE EVERY DAY Start Date: 02/09/15 Status: Orderedalendronate 70 mg oral tablet 70 mg 1 tabs, Oral, qWeek, 8 oz plain water, at least 30 mins before first food , beverage, or medication of the day. upright 30 mins., # 5 tabs, 2 Refill(s), Pharmacy: [facility] 86247, 1 tabs Oral qWeek,Instr:8 oz plain water, [...] 09/11/14 Status: Orderedgemfibrozil 600 mg oral tablet 600 mg 1 tabs, Oral, BID, LAST FILL. PT. NEEDS AN APPT., # 60 tabs, 0 Refill(s) , Pharmacy: [id number], 1 tabs Oral BID,Instr:LAST FILL. PT. NEEDS [...] Extracted from: Title: Ambulatory Patient Education Author: Eomry Segundo MD Date: Family Medicine Cellulitis Cellulitis [...] per day to relieve pain. Only take sjjb-rat-kliqikh or prescription medicines for pain, discomfort , [...] Document Reviewed: 04/09/2012 [employer] Patient Information 2014 [employer]. No follow up information was provided. Extracted from: Title: Office Visit Note Author: Emory Segundo MD Date: 08/04/14 Assessment/Plan Cellulitis and abscess of toe Patient is now ready to start her treatment for the RA Ordered: Office Visit Level 2 Est 39425 Orders: gemfibrozil, See Instructions, TAKE 1 TABLET BY MOUTH TWICE A DAY. NEEDS APPT WITH PCP PRIOR TO REFILL, # 60 tabs, 5 Refill(s), eRx: [facility] [id number], TAKE 1 TABLET BY MOUTH TWICE A DAY. NEEDS APPT WITH PCP PRIOR TO REFILL
--- OUTSIDE RECORDS SUMMARY | 2017-01-21 14:23 | External Medical Summary | Referral Summary ---
:1930 Author Organization [facility], Rheumatology Address [address] [place] [address] [place] [phone] Care Team Providers Name Role Phone Emory Segundo Primary Care Physician Encounter VC Date(s): 08/27/15 - 08/27/15 [facility], [address] [place] [phone] [place] Discharge Diagnosis: Osteoporosis Discharge Diagnosis: High risk medication use Discharge Diagnosis: Other rheumatoid arthritis with rheumatoid factor of multiple sites Discharge Disposition: 01-Home or Self Care Attending Physician: Silvia Ayon MD Admitting Physician: Silvia Ayon MD Referring Physician: Emory Segundo MD Vital Signs Most recent to oldest [Reference Range]: 1 Peripheral Pulse Rate [60-100 bpm] 71 bpm (08/27/15 1:57 PM) Respiratory Rate [14-20 br/min] 16 br/min (08/27/15 1:57 PM) Blood Pressure [90-140/60-90 mmHg] 134/67 mmHg (08/27/15 1:57 PM) Problem List Condition Effective Dates Status [...] DAY, # 60 unknown unit, 4 Refill(s), eRx:[id number], TAKE 1 TABLET (30MG) BY ORAL ROUTE EVERY DAY Start Date: 04/13/15 Status: Orderedatenolol 50 mg oral tablet 1/2 tabs, Oral, Daily, 0 Refill(s) Start Date: 01/09/15 Status: Orderedcefdinir 300 mg oral capsule 300 mg 1 caps, Oral, q12hr, X 10 days, # 20 caps, 0 Refill(s), Pharmacy: [facility] [id number],1 caps Oral q12hr,x10 days Start Date: 08/21/15 Stop Date: 08/31/15 Status: Orderedfolic acid 0.8 mg oral tablet 1.6 mg 2 tabs, Oral, Daily, 0 Refill(s) Start Date: 09/11/14 Status: Orderedgemfibrozil 600 mg oral tablet See Instructions, TAKE 1 TABLET BY MOUTH TWICE DAILY, # 60 tabs, 2 Refill(s), eRx: [facility] [id number], TAKE 1 TABLET BY MOUTH TWICE DAILY Start Date: 07/14/15 Status: Orderedmethotrexate 2.5 mg oral tablet See Instructions, 4 TABS ORAL QWEEK, # 20 tabs, 3 Refill(s), Pharmacy: [facility] [id number], please note change in dose and disregard [...] Visit Note Author: Silvia Ayon MD Date: 08/27/15 Assessment/Plan 1.Other rheumatoid arthritis with rheumatoid factor of multiple sites She appears overall to be stable. She has chronic deformities but no active disease noted. We will continue her methotrexate at 10 mg. 2.Osteoporosis She is not currently on medications. She may have had gastrointestinal problems related to alendronate. She does not want to change or add any medications at this time. Isugge sted that she takes calcium; she is taking vitamin D. 3.High risk medication use Laboratory donea month ago which is stable. No toxicities noted. Follow-up in 4 months.
--- OUTSIDE RECORDS SUMMARY | 2017-01-21 14:23 | External Medical Summary | Referral Summary ---
:1930 Author Organization [facility], Urology Address [address] [place] [address] [place] [phone] Care Team Providers Name Role Phone Emory Segundo Primary Care Physician Encounter VC Date(s): 07/08/14 - 07/08/14 [facility], Urology [address] [place] [address] [place] [phone] [place] Discharge Diagnosis: Recurrent [...] DAY, # 60 unknown unit, 2 Refill(s), [facility], TAKE 1 TABLET (30MG) BY ORAL ROUTE [...] REFILL, # 60 tabs, 5 Refill(s), eRx: [facility] 88876, TAKE 1 TABLET BY MOUTH TWICE A DAY. NEEDS APPT WITH PCP PRIOR TO REFILL Start Date: 08/04/14 Status: OrderedImodium A-D See Instructions, 2 mg Oral 2 hours after breakfast, 0 Refill(s) Start Date: 07/07/13 Status: Orderedmethotrexate 2.5 mg oral tablet See Instructions, 5 tabs Oral qWeek on Monday, # 15 tabs, 2 Refill(s), Pharmacy : [facility] [id number], please note change in dose, deactivate prior., [...] Follow Up With: Where: When: Emory Segundo [address] [place] [address] Drive; [facility] [place] [address] Business (1) Within 3 to 5 days Comments: Follow Up With: Where: When: Yaw Brambila [address] [place] [address] Drive; [facility] [place] [address] Business (1) In 6 months 01/07/2015 Comments: [...] counseling. Ordered: Office Visit Level 3 Est 71487 Orders: Urine Culture
--- OUTSIDE RECORDS SUMMARY | 2017-01-21 14:23 | External Medical Summary | Referral Summary ---
:1930 Author Organization [facility] [place] [phone] Care Team Providers Name Role Phone Emory Segundo Primary Care Physician Encounter VC Date(s): 04/03/15 - 04/03/15 [facility] [place] [phone] [place] Discharge Diagnosis: Osteoporosis Discharge Diagnosis: Hypertension Discharge Disposition: 01-Home or Self Care Attending Physician: Emory Segundo MD Admitting Physician: Emory Segundo MD Vital Signs Most recent to oldest [Reference Range]: 1 Blood Pressure [90-140/60-90 mmHg] 138/60 mmHg (04/03/15 11:34 AM) Problem List Condition Effective Dates Status [...] EVERY DAY, # 60 unknown unit, eRx: [facility], TAKE 1 TABLET (30MG) BY ORAL ROUTE EVERY DAY Start Date: 02/09/15 Status: Orderedalendronate 70 mg oral tablet 70 mg 1 tabs, Oral, qWeek, 8 oz plain water, at least 30 mins before first food , beverage, or medication of the day. upright 30 mins., # 5 tabs, 2 Refill(s), Pharmacy: [facility] [address], 1 tabs Oral qWeek,Instr:8 oz plain water, [...] AN APPT., # 60 tabs , eRx: [facility] [address]602, 1 TABS ORAL BID,INSTR:LAST FILL. PT. NEEDS AN APPT. Start Date: 03/16/15 Status: OrderedImodium A-D See Instructions, 2 mg Oral 2 hours after breakfast, 0 Refill(s) Start Date: 07/07/13 Status: Orderedmethotrexate 2.5 mg oral tablet See Instructions, 6 TABS ORAL QWEEK, # 30 tabs, eRx: [facility] [id number] , 6 TABS ORAL QWEEK Start Date: 04/03/15 Status: OrderedVitamin D3 2,000 Intl_Units, Oral, Daily, 0 Refill(s) Start Date: 07/25/14 Status: Ordered Results Hematology Most recent to oldest [Reference Range]: 1 WBC [4.8-10.8 10*3/uL] 5.5 10*3/uL (04/03/15 12:05 PM) RBC [4.00-5.20] 3.57 *LOW* (04/03/15 12:05 PM) Hgb [12.0-16.0 gm/dL] 11.1 gm/dL *LOW* (04/03/15 12:05 PM) Hct [37.0-47.0 %] 34.3 % *LOW* (04/03/15 12:05 PM) MCV [82.0-99.0 fL] 96.1 fL (04/03/15 12:05 PM) MCH [27.0-32.0 pg] 31.1 pg (04/03/15:05 PM) MCHC [32.0-36.0 gm/dL] 32.4 gm/dL (04/03/15 12:05 PM) RDW [11.5-14.5 %] 15.7 % *HI* (04/03/15 12:05 PM) Platelet [150-400 10*3/uL] 410 10*3/uL *HI* (04/03/15:05 PM) MPV [8.8-14.8 fL] 9.6 fL (04/03/15 12:05 PM) Immature Granulocytes [0.0-1.0 %] 0.7 % (04/03/15:05 PM) Neutrophils [51-75 %] 50 % *LOW* (04/03/15 12:05 PM) Lymphocytes [20-46 %] 20 % (04/03/15 12:05 PM) Monocytes [4-11 %] 18 % *HI* (04/03/15:05 PM) Eosinophils [0-4 %] 11 % *HI* (04/03/15 12:05 PM) Basophils [0-2 %] 1 % (04/03/15 12:05 PM) Neutro Absolute [1.90-7.00 10*3] 2.78 10*3 (04/03/15 12:05 PM) Lymph Absolute [0.80-3.30 10*3] 1.08 10*3 (04/03/15 12:05 PM) [place]ria Absolute [0.30-1.00 10*3] 0.97 10*3 (04/03/15 12:05 PM) Eos Absolute [0.00-0.50 10*3] 0.60 10*3 *HI* (04/03/15 12:05 PM) Baso Absolute [0.00-0.20 10*3] 0.05 10*3 (04/03/15 12:05 PM) Chemistry Most recent to oldest [Reference Range]: 1 Sodium Lvl [135-144 mEq/L] 138 mEq/L (04/03/15 12:05 PM) Potassium Lvl [3.5-5.2 mEq/L] 4.5 mEq/L (04/03/15:05 PM) Chloride [99-111 mEq/L] 104 mEq/L (04/03/15:05 PM) CO2 [22-31 mEq/L] 25 mEq/L (04/03/15:05 PM) AGAP [3-20] 9 (04/03/15:05 PM) BUN [10-20 mg/dL] 20 mg/dL (04/03/15:05 PM) Glucose Lvl [70-99 mg/dL] 87 mg/dL (04/03/1505 PM) Creatinine Lvl [0.57-1.11 mg/dL] 0.82 mg/dL (04/03/15:05 PM) eGFR [>60 mL/min] >60 mL/min 1 (04/03/1505 PM) Calcium Lvl [8.9-10.5 mg/dL] 9.2 mg/dL (04/03/15 12:05 PM) Albumin Lvl [3.4-4.8 gm/dL] 4.4 gm/dL (04/03/15 12:05 PM) Total Protein [6.2-8.1 gm/dL] 7.2 gm/dL (04/03/15:05 PM) Globulin [1.8-4.0 gm/dL] 2.8 gm/dL (04/03/15:05 PM) ALT [0-55 U/L] 17 U/L (04/03/15 12:05 PM) AST [5-34 U/L] 32 U/L (04/03/15 12:05 PM) Alk Phos [40-150 U/L] 168 U/L *HI* (04/03/15 12:05 PM) Bili Total [0.2-1.2 mg/dL] 0.4 mg/dL (04/03/15 12:05 PM) Trig [0-149 mg/dL] 159 mg/dL *HI* (04/03/15 12:05 PM) HDL [40-84 mg/dL] 42 mg/dL (04/03/15 12:05 PM) LDL Direct [0-129 mg/dL] 94 mg/dL (04/03/15 12:05 PM) 1Result Comment: Multiply eGFR results by [...] Patient Education Author: Emory Segundo MD Date: Obstetrics and Gynecology Osteoporosis Osteoporosis is the thinning and loss of density in the bones. Osteoporosis makes the bones more brittle, fragile, and likely to break (fracture). Over time , osteoporosis can cause the bones to become s o weak that they fracture after a simple fall. The bones most likely to fracture are the bones in the hip, wrist, and spine. CAUSES The exact cause is not known. RISK FACTORS Anyone can develop osteoporosis. You may be at greater risk if you have a family history of the condition or have poor nutrition. You may also have a higher risk if you are: Female. 50 years old or older. A smoker. Not physically active. White or . Slender. SIGNS AND SYMPTOMS A fracture might be the first sign of the disease, especially if it results from a fall or injury that would not usually cause a bone to break. Other signs and symptoms include: Low back and neck pain. Stooped posture. Height loss. DIAGNOSIS To make a diagnosis, your health care provider may: Take a medical history. Perform a physical exam. Order tests, such as: A bone mineral density test. A dual-energy X-ray absorptiometry test. TREATMENT The goal of osteoporosis treatment is to strengthen your bones to reduce your risk of a fracture. Treatment may involve: Making lifestyle changes, such as: Eating a diet rich in calcium. Doing weight-bearing and muscle-strengthening exercises. Stopping tobacco use. Limiting alcohol intake. Taking medicine to slow the process of bone loss or to increase bone density. Monitoring your levels of calcium and vitamin D. HOME CARE INSTRUCTIONS Include calcium and vitamin D in your diet. Calcium is important for bone health, and vitamin D helps the body absorb calcium. Perform weight-bearing and muscle-strengthening exercises as directed by your health care provider. Do not use any tobacco products, including cigarettes, chewing tobacco, and electronic cigarettes. If you need help quitting, ask your health care provider. Limit your alcohol intake. Take medicines only as directed by your health care provider. Keep all follow-up visits as directed by your health care provider. This is important. Take precautions at home to lower your risk of falling, such as: Keeping rooms well lit and clutter free. Installing safety rails on stairs. Using rubber mats in the bathroom and other areas that are often wet or slippery. SEEK IMMEDIATE MEDICAL CARE IF: You fall or injure yourself. This information is not intended to replace advice given to you by your health care provider. Make sure you discuss any questions you have with your health care provider. Document Released: 11/02/2005 Document Revised: 11/11/2014 Document Reviewed: 07/03/2014 [facility] Patient Information 2015 [facility]. Preventive Medicine Managing Your High Blood Pressure Blood pressure is a measurement of how forceful your blood is pressing against the amezquita of the arteries. Arteries are muscular tubes within the circulatory system. Blood pressure does not stay the same . Blood pressure rises when you are active, excited, or nervous; and it lowers during sleep and relaxation. If the numbers measuring your blood pressure stay above normal most of the time, you are at ri sk for health problems. High blood pressure (hypertension) is a long-term ( chronic) condition in which blood pressure is elevated. A blood pressure reading is recorded as two numbers, such as 120 over 80 (or 120/80). The first, higher number is called the systolic pressure. It is a measure of the pressure in your arteries as the he art beats. The second, lower number is called the diastolic pressure. It is a measure of the pressure in your arteries as the heart relaxes between beats. Keeping your blood pressure in a normal range is important to your overall health and prevention of health problems, such as heart disease and stroke. When your blood pressure is uncontrolled, your hear t has to work harder than normal. High blood pressure is a very common condition in adults because blood pressure tends to rise with age. Men and women are equally likely to have hypertension but at dif ferent times in life. Before age 45, men are more likely to have hypertension. After 65 years of age, women are more likely to have it. Hypertension is especially common in Americans. This condi tion often has no signs or symptoms. The cause of the condition is usually not known. Your caregiver can help you come up with a plan to keep your blood pressure in a normal, healthy range. BLOOD PRESSURE STAGES Blood pressure is classified into four stages: normal, prehypertension, stage 1 , and stage 2. Your blood pressure reading will be used to determine what type of treatment, if any, is necessary. Appropri ate treatment options are tied to these four stages: Normal Systolic pressure (mm Hg): below 120. Diastolic pressure (mm Hg): below 80. Prehypertension Systolic pressure (mm Hg): 120 to 139. Diastolic pressure (mm Hg): 80 to 89. Stage1 Systolic pressure (mm Hg): 140 to 159. Diastolic pressure (mm Hg): 90 to 99. Stage2 Systolic pressure (mm Hg): 160 or above. Diastolic pressure (mm Hg): 100 or above. RISKS RELATED TO HIGH BLOOD PRESSURE Managing your blood pressure is an important responsibility. Uncontrolled high blood pressure can lead to: A heart attack. A stroke. A weakened blood vessel (aneurysm). Heart failure. Kidney damage. Eye damage. Metabolic syndrome. Memory and concentration problems. HOW TO MANAGE YOUR BLOOD PRESSURE Blood pressure can be managed effectively with lifestyle changes and medicines (if needed). Your caregiver will help you come up with a plan to bring your blood pressure within a normal range. Your plan should include the following: Education Read all information provided by your caregivers about how to control blood pressure. Educate yourself on the latest guidelines and treatment recommendations. New research is always being done to further define the risks and treatments for high blood pressure. Lifestylechanges Control your weight. Avoid smoking. Stay physically active. Reduce the amount of salt in your diet. Reduce stress. Control any chronic conditions, such as high cholesterol or diabetes. Reduce your alcohol intake. Medicines Several medicines (antihypertensive medicines) are available, if needed , to bring blood pressure within a normal range. Communication Review all the medicines you take with your caregiver because there may be side effects or interactions. Talk with your caregiver about your diet, exercise habits, and other lifestyle factors that may be contributing to high blood pressure. See your caregiver regularly. Your caregiver can help you create and adjust your plan for managing high blood pressure. RECOMMENDATIONS FOR TREATMENT AND FOLLOW-UP The following recommendations are based on current guidelines for managing high blood pressure in non adults. Use these recommendations to identify the proper follow-up period or treatment optio n based on your blood pressure reading. You can discuss these options with your caregiver. Systolic pressure of 120 to 139 or diastolic pressure of 80 to 89: Follow up with your caregiver as directed. Systolic pressure of 140 to 160 or diastolic pressure of 90 to 100: Follow up with your caregiver within 2 months. Systolic pressure above 160 or diastolic pressure above 100: Follow up with your caregiver within 1 month. Systolic pressure above 180 or diastolic pressure above 110: Consider antihypertensive therapy; follow up with your caregiver within 1 week. Systolic pressure above 200 or diastolic pressure above 120: Begin antihypertensive therapy; follow up with your caregiver within 1 week. This information is not intended to replace advice given to you by your health care provider. Make sure you discuss any questions you have with your health care provider. Document Released: 10/17/2012 Document Reviewed: 10/17/2012 [facility] Patient Information 2015 [employer] [facility]. No follow up information was provided. Extracted from: Title: Office Visit Note Author: Emory Segundo MD Date: 04/03/15 Assessment/Plan Age-related osteoporosis without current pathological fracture, Osteoporosis Ordered: Office Visit Level 3 Est 41911 High cholesterol Will get lab nonfasting today and continue with the current medications. Ordered: Cholesterol HDL LDL Direct Office Visit Level 3 Est 15644 Triglycerides Hypertension, UNSPECIFIED ESSENTIAL HYPERTENSION Ordered: CBC w/ Differential Comprehensive Metabolic Panel Office Visit Level 3 Est 77436
--- OUTSIDE RECORDS SUMMARY | 2017-01-21 14:23 | External Medical Summary | Referral Summary ---
:1930 [facility] Address [address] [place] [address] [place] [phone] Care Team Providers Name Role Phone Emory Segundo Primary Care Physician Encounter VC Date(s): 12/29/15 - 12/29/15 [facility] [place] [phone] [place] Discharge Disposition: 01-Home or Self Care Attending Physician: Suad Wheat PA-C Admitting Physician: Emory Segundo MD Vital Signs [...] DAY, # 60 unknown unit, 4 Refill(s), eRx:[facility] 55214, TAKE 1 TABLET (30MG) BY ORAL ROUTE EVERY DAY Start Date: 04/13/15 Status: Orderedatenolol 50 mg oral tablet See Instructions, TAKE 1 TABLET BY MOUTH TWICE DAILY, # 180 tabs, eRx: [facility] [id number], TAKE 1 TABLET BY MOUTH TWICE DAILY Start Date: 12/14/15 Status: Orderedfolic acid 0.8 mg oral tablet 1.6 mg 2 tabs, Oral, Daily, 0 Refill(s) Start Date: 09/11/14 Status: Orderedgemfibrozil 600 mg oral tablet See Instructions, TAKE 1 TABLET BY MOUTH TWICE DAILY, # 60 tabs, eRx: [facility] [id number], TAKE 1 TABLET BY MOUTH TWICE DAILY Start Date: 12/21/15 Status: Orderedmethotrexate 2.5 mg oral tablet See Instructions, 4 TABS ORAL QWEEK, # 20 tabs, 3 Refill(s), [facility], please note change in dose and [...]
--- OUTSIDE RECORDS SUMMARY | 2017-01-21 14:23 | External Medical Summary | Referral Summary ---
:1930 Author Organization [facility], Rheumatology Address [address] [place] [address] [place] [phone] Care Team Providers Name Role Phone Segundo Emory Jessica Primary Care Physician Encounter VC Date(s): 01/09/15 - 01/09/15 [facility], [address] [place] [phone] [place] Discharge Diagnosis: High risk medication use Discharge Diagnosis: Rheumatoid arthritis Discharge Diagnosis: Osteoporosis Discharge Disposition: 01-Home or Self Care Attending Physician: Silvia Ayon MD Admitting Physician: Silvia Ayon MD Referring Physician: Silvia Ayon MD Vital Signs Most recent to oldest [Reference Range]: 1 Peripheral Pulse Rate [60-100 bpm] 60 bpm (01/09/15 2:11 PM) Blood Pressure [90-140/60-90 mmHg] 132/62 mmHg (01/09/15 2:11 PM) Problem List Condition Effective Dates Status [...] DAY, # 60 unknown unit, 2 Refill(s), eRx:[facility] [id number], TAKE 1 TABLET (30MG) BY ORAL ROUTE [...] REFILL, # 60 tabs, 5 Refill(s), eRx: [facility] 05227, TAKE 1 TABLET BY MOUTH TWICE A DAY. NEEDS APPT WITH PCP PRIOR TO REFILL Start Date: 08/04/14 Status: OrderedImodium A-D See Instructions, 2 mg Oral 2 hours after breakfast, 0 Refill(s) Start Date: 07/07/13 Status: Orderedmethotrexate 2.5 mg oral tablet See Instructions, 5 tabs Oral qWeek on Monday, # 15 tabs, 2 Refill(s), Pharmacy : [facility] [id number], please note change in dose, deactivate prior., [...] Visit Note Author: Silvia Ayon MD Date: 01/09/15 Assessment/Plan 1.Rheumatoid arthritis She is doing well and there is no active disease noted. We will continue methotrexate 12.5 mg and folic acid supplementation. Ordered: ALT AST 2.High risk medication use She had a mild elevation in her liver test which we will repeat. Otherwise no toxicities noted. Ordered: ALT AST Vitamin D 25 Hydroxy Level 3.Osteoporosis She has osteoporosis with fragility fracture. She was unable to do her bone density because of the recentfracture her left hip. She will schedule a done later. I will check a vitamin D level. I discussed using alendronate. I reviewed the potential risks which may occur this medication including jaw necrosis, atypical fractures ,esophagitis etc. She is not sure she w ants to start medication but was given a prescription. I encouraged her to continue calcium and vitamin D and also weight-bearing exercise. Follow-up in 3-4 months. Ordered: Vitamin D 25 Hydroxy Level Orders: alendronate, 70 mg 1 tabs, Oral, qWeek, 8 oz plain water, at least 30 mins before first food, beverage, or medication of the day. upright 30 mins. , # 5 tabs, 2 Refill(s)
--- OUTSIDE RECORDS SUMMARY | 2017-01-21 14:23 | External Medical Summary | Referral Summary ---
:1930 Author [facility] Address [address] [place] [address] [place] [phone] Care Team Providers Name Role Phone Emory Segundo Primary Care Physician Encounter VC Date(s): 07/16/14 - 07/16/14 [facility] [place] [phone] [place] Discharge Disposition: 01-Home or Self Care Attending Physician: Emory Segundo MD Admitting Physician: Emory Segundo MD Vital Signs Most recent to oldest [Reference Range]: 1 Blood Pressure [90-140/60-90 mmHg] 130/60 mmHg (07/16/14 10:15 AM) Problem List Condition Effective Dates Status [...] DAY, # 60 unknown unit, 2 Refill(s), eRx:[facility] 69168, TAKE 1 TABLET (30MG) BY ORAL ROUTE EVERY DAY Start Date: 08/04/14 Status: Orderedalendronate 70 mg oral tablet 70 mg 1 tabs, Oral, qWeek, 8 oz plain water, at least 30 mins before first food , beverage, or medication of the day. upright 30 mins., # 5 tabs, 2 Refill(s), Pharmacy: [facility] 87423, 1 tabs Oral qWeek,Instr:8 oz plain water, [...] REFILL, # 60 tabs, 5 Refill(s), eRx: [facility] 55621, TAKE 1 TABLET BY MOUTH TWICE A [...] oldest [Reference Range]: 1 WBC [4.8-10.8 10*3/uL] 8.7 10*3/uL (07/16/14 11:00 AM) RBC [4.00-5.20 10*6/uL] 3.96 10*6/uL *LOW* (07/16/14 11:00 AM) Hgb [12.0-16.0 gm/dL] 12.0 gm/dL (07/16/14 11:00 AM) Hct [37.0-47.0 %] 36.5 % *LOW* (07/16/14 11:00 AM) MCV [82.0-99.0 fL] 92.2 fL (07/16/14 11:00 AM) MCH [27.0-32.0 pg] 30.3 pg (07/16/14 11:00 AM) MCHC [32.0-36.0 gm/dL] 32.9 gm/dL (07/16/14 11:00 AM) RDW [11.5-14.5 %] 14.4 % (07/16/14 11:00 AM) Platelet [150-400 10*3/uL] 473 10*3/uL *HI* (07/16/14 11:00 AM) MPV [8.8-14.8 fL] 9.6 fL (07/16/14 11:00 AM) Immature Granulocytes [0.0-1.0 %] 0.2 % (07/16/14 11:00 AM) Neutrophils [51-75 %] 67 % (07/16/14 11:00 AM) Lymphocytes [20-46 %] 16 % *LOW* (07/16/14 11:00 AM) Monocytes [4-11 %] 12 % *HI* (07/16/14 11:00 AM) Eosinophils [0-4 %] 4 % (07/16/14 11:00 AM) Basophils [0-2 %] 1 % (07/16/14 11:00 AM) Neutro Absolute [1.90-7.00 10*3] 5.82 10*3 (07/16/14 11:00 AM) Lymph Absolute [0.80-3.30 10*3] 1.39 10*3 (07/16/14 11:00 AM) [place] Absolute [0.30-1.00 10*3] 1.07 10*3 *HI* (07/16/14 11:00 AM) Eos Absolute [0.00-0.50 10*3] 0.32 10*3 (07/16/14 11:00 AM) Baso Absolute [0.00-0.20 10*3] 0.04 10*3 (07/16/14 11:00 AM) Chemistry Most recent to oldest [Reference Range]: 1 Sodium Lvl [135-144 mEq/L] 138 mEq/L (07/16/14 11:00 AM) Potassium Lvl [3.5-5.2 mEq/L] 4.5 mEq/L (07/16/14:00 AM) Chloride [99-111 mEq/L] 108 mEq/L (07/16/14:00 AM) CO2 [22-31 mEq/L] 18 mEq/L *LOW* (07/16/14 AM) AGAP [3-20] 12 (07/16/14 AM) BUN [10-20 mg/dL] 25 mg/dL *HI* (07/16/14 AM) Glucose Lvl [70-99 mg/dL] 81 mg/dL (07/16/14 AM) Creatinine Lvl [0.57-1.11 mg/dL] 1.14 mg/dL *HI* (07/16/14: AM) eGFR [>60 mL/min] 46 mL/min 1 *ABN* (07/16/14 AM) Calcium Lvl [8.9-10.5 mg/dL] 9.9 mg/dL (07/16/14:00 AM) Albumin Lvl [3.4-4.8 gm/dL] 4.5 gm/dL (07/16/1400 AM) Total Protein [6.2-8.1 gm/dL] 7.4 gm/dL (07/16/14:00 AM) Globulin [1.8-4.0 gm/dL] 2.9 gm/dL (07/16/14:00 AM) ALT [0-55 U/L] 15 U/L (07/16/14:00 AM) AST [5-34 U/L] 22 U/L (07/16/1400 AM) Alk Phos [40-150 U/L] 127 U/L (07/16/1400 AM) Bili Total [0.2-1.2 mg/dL] 0.3 mg/dL (07/16/14:00 AM) Chol [0-199 mg/dL] 179 mg/dL (6/10/15 11:00 AM) Trig [0-149 mg/dL] 129 mg/dL (07/16/14 11:00 AM) HDL [40-84 mg/dL] 49 mg/dL (07/16/14 11:00 AM) LDL [0-130 mg/dL] 104 mg/dL (07/16/14 11:00 AM) VLDL Cholesterol [0-28 mg/dL] 26 mg/dL (07/16/14 11:00 AM) Cardiac Risk [0.0-5.0] 3.7 (07/16/14 11:00 AM) 1Result Comment: Multiply eGFR results by 1.21 [...] Patient Education Author: Emory Segundo MD Date: No follow up information was provided. Extracted from: Title: Office Visit Note Author: Emory Segundo MD Date: 07/16/14 Assessment/Plan Hypertension Continue with the current medications. Will get lab today. Ordered: CBC w/ Differential Comprehensive Metabolic Panel Office Visit Level 4 Est 97084 Hypertriglyceridemia Ordered: Lipid Panel Office Visit Level 4 Est 05540 Osteoporosis Ordered: Office Visit Level 4 Est 48459 Orders: atenolol, 25 mg 0.5 tabs, Oral, Daily, # 60 unknown unit, 1 Refill(s) , eRx: [facility] 31895, TAKE 1 TABLET BY MOUTH TWICE A DAY.
--- OUTSIDE RECORDS SUMMARY | 2017-01-21 14:23 | External Medical Summary | Referral Summary ---
:1930 [facility] Address [address] [place] [address] [place] [phone] Care Team Providers Name Role Phone Emory Segundo Primary Care Physician Encounter VC Date(s): 09/09/15 - 09/09/15 [facility] [place] [phone] [place] Discharge Disposition: 01-Home or Self Care Attending Physician: Emory Segundo MD Admitting Physician: Emory Segundo MD Vital Signs Most recent to oldest [Reference Range]: 1 Peripheral Pulse Rate [60-100 bpm] 58 bpm *LOW* (09/09/15 11:15 AM) Blood Pressure [90-140/60-90 mmHg] 122/62 mmHg (09/09/15 11:15 AM) Problem List Condition Effective Dates Status [...] DAY, # 60 unknown unit, 4 Refill(s), eRx:[facility] 13853, TAKE 1 TABLET (30MG) BY ORAL ROUTE EVERY DAY Start Date: 04/13/15 Status: Orderedatenolol 50 mg oral tablet 1/2 tabs, Oral, Daily, 0 Refill(s) Start Date: 01/09/15 Status: OrderedCipro 250 mg oral tablet 250 mg 1 tabs, Oral, q12hr, X 10 days, # 20 tabs, 0 Refill(s), Pharmacy: [facility] 02244,1 tabs Oral q12hr,x10 days Start Date: 08/31/15 Stop Date: 09/10/15 Status: Orderedfolic acid 0.8 mg oral tablet 1.6 mg 2 tabs, Oral, Daily, 0 Refill(s) Start Date: 09/11/14 Status: Orderedgemfibrozil 600 mg oral tablet See Instructions, TAKE 1 TABLET BY MOUTH TWICE DAILY, # 60 tabs, 2 Refill(s), eRx: [facility] [id number], TAKE 1 TABLET BY MOUTH TWICE DAILY Start Date: 07/14/15 Status: Orderedmethotrexate 2.5 mg oral tablet See Instructions, 4 TABS ORAL QWEEK, # 20 tabs, 3 Refill(s), Pharmacy: [facility] [id number], please note change in dose and disregard [...] oldest [Reference Range]: 1 UA Color Yellow (09/09/15 11:31 AM) UA Appear Clear (09/09/15 11:31 AM) UA pH [5.0-8.0] 7.0 (09/09/15 11:31 AM) UA Leuk Est [Negative] Pos 3+ 1 *ABN* (09/09/15 11:31 AM) UA Nitrite [Negative] Positive *ABN* (09/09/15 11:31 AM) UA Protein [Negative] Trace *ABN* (09/09/15 11:31 AM) UA Glucose [Negative] Negative (09/09/15 11:31 AM) UA Ketones [Negative] Negative (09/09/15 11:31 AM) UA Urobilinogen [<=1.0 mg/dL] 0.2 mg/dL (09/09/15 11:31 AM) UA Bili [Negative] Negative (09/09/15 11:31 AM) UA Blood [Negative] Trace *ABN* (09/09/15 11:31 AM) UA Spec Grav [1.003-1.030] 1.020 (09/09/15 11:31 AM) Type Cl Catch (09/09/15 11:31 AM) UA WBC [0-4 /HPF] >50 /HPF *ABN* (09/09/15 11:31 AM) UA RBC [0-2] 2-5 (09/09/15 11:31 AM) Epithelial Cells 0-2 (09/09/15 11:31 AM) UA Bacteria Rare (09/09/15 11:31 AM) 1Result Comment: 3ml of urine only used for microscopic. insufficient urine for full 12ml microscopic spin down 12:36 09/09/2015 Immunizations Vaccine Date Refusal Reason influenza virus [...]
--- OUTSIDE RECORDS SUMMARY | 2017-01-21 14:23 | External Medical Summary | Referral Summary ---
:1930 [facility] Address [address] [place] [address] [place] [phone] Care Team Providers Name Role Phone Emory Segundo Primary Care Physician Encounter VC Date(s): 07/08/15 - 07/08/15 [facility] [place] [phone] [place] Discharge Disposition: 01-Home or Self Care Attending Physician: Emory Segundo MD Admitting Physician: Emory Segundo MD Vital Signs Most recent to oldest [Reference Range]: 1 Blood Pressure [90-140/60-90 mmHg] 128/64 mmHg (07/08/15 10:45 AM) Problem List Condition Effective Dates Status [...] DAY, # 60 unknown unit, 4 Refill(s), eRx:[facility] 99140, TAKE 1 TABLET (30MG) BY ORAL ROUTE EVERY DAY Start Date: 04/13/15 Status: Orderedatenolol 50 mg oral tablet 1/2 tabs, Oral, Daily, 0 Refill(s) Start Date: 01/09/15 Status: OrderedCipro 500 mg oral tablet 500 mg 1 tabs, Oral, q12hr, X 10 days, # 20 tabs, 0 Refill(s), Pharmacy: [facility] 56761,1 tabs Oral q12hr,x10 days Start Date: 06/30/15 Stop Date: 07/10/15 Status: Orderedfolic acid 0.8 mg oral tablet 1.6 mg 2 tabs, Oral, Daily, 0 Refill(s) Start Date: 09/11/14 Status: Orderedgemfibrozil 600 mg oral tablet See Instructions, TAKE 1 TABLET BY MOUTH TWICE DAILY, # 60 tabs, eRx: [facility] 19561, TAKE 1 TABLET BY MOUTH TWICE DAILY Start Date: 06/09/15 Status: Orderedmethotrexate 2.5 mg oral tablet See Instructions, 4 TABS ORAL QWEEK, # 20 tabs, 3 Refill(s), Pharmacy: [facility] 68251, please note change in dose and disregard [...] oldest [Reference Range]: 1 WBC [4.8-10.8 10*3/uL] 5.8 10*3/uL (07/08/15 11:50 AM) RBC [4.00-5.20] 3.67 *LOW* (07/08/15 11:50 AM) Hgb [12.0-16.0 gm/dL] 10.8 gm/dL *LOW* (07/08/15 11:50 AM) Hct [37.0-47.0 %] 34.2 % *LOW* (07/08/15 11:50 AM) MCV [82.0-99.0 fL] 93.2 fL (07/08/15 11:50 AM) MCH [27.0-32.0 pg] 29.4 pg (07/08/15 11:50 AM) MCHC [32.0-36.0 gm/dL] 31.6 gm/dL *LOW* (07/08/15 11:50 AM) RDW [11.5-14.5 %] 17.0 % *HI* (07/08/15 11:50 AM) Platelet [150-400 10*3/uL] 460 10*3/uL *HI* (07/08/15 11:50 AM) MPV [8.8-14.8 fL] 9.0 fL (07/08/15 11:50 AM) Immature Granulocytes [0.0-1.0 %] 0.7 % (07/08/15 11:50 AM) Neutrophils [51-75 %] 71 % (07/08/15 11:50 AM) Lymphocytes [20-46 %] 12 % *LOW* (07/08/15 11:50 AM) Monocytes [4-11 %] 10 % (07/08/15 11:50 AM) Eosinophils [0-4 %] 6 % *HI* (07/08/15 11:50 AM) Basophils [0-2 %] 1 % (07/08/15 11:50 AM) Neutro Absolute [1.90-7.00 10*3] 4.09 10*3 (07/08/15 11:50 AM) Lymph Absolute [0.80-3.30 10*3] 0.72 10*3 *LOW* (07/08/15 11:50 AM) [place] Absolute [0.30-1.00 10*3] 0.56 10*3 (07/08/15 11:50 AM) Eos Absolute [0.00-0.50 10*3] 0.34 10*3 (07/08/15 11:50 AM) Baso Absolute [0.00-0.20 10*3] 0.04 10*3 (07/08/15 11:50 AM) Immunizations Vaccine Date Refusal Reason influenza virus [...] Patient Education Author: Emory Segundo MD Date: 07/08/15 Emergency Medicine Abdominal Pain Many things can cause abdominal pain. Usually, abdominal pain is not caused by a disease and will improve without treatment. It can often be observed and treated at home. Your health care provider will do a physical exam and possibly order blood tests and X-rays to help determine the seriousness of your pain. However, in many cases, more time must pass before a clear cause of the pain can be found. Be fore that point, your health care provider may not know if you need more testing or further treatment. HOME CARE INSTRUCTIONS Monitor your abdominal pain for any changes. The following actions may help to alleviate any discomfort you are experiencing: Only take qgoy-bff-ngoncpm or prescription medicines as directed by your health care provider. Do not take laxatives unless directed to do so by your health care provider. Try a clear liquid diet (broth, tea, or water) as directed by your health care provider. Slowly move to a bland diet as tolerated. SEEK MEDICAL CARE IF: You have unexplained abdominal pain. You have abdominal pain associated with nausea or diarrhea. You have pain when you urinate or have a bowel movement. You experience abdominal pain that wakes you in the night. You have abdominal pain that is worsened or improved by eating food. You have abdominal pain that is worsened with eating fatty foods. You have a fever. SEEK IMMEDIATE MEDICAL CARE IF: Your pain does not go away within 2 hours. You keep throwing up (vomiting). Your pain is felt only in portions of the abdomen, such as the right side or the left lower portion of the abdomen. You pass bloody or black tarry stools. MAKE SURE YOU: Understand these instructions. Will watch your condition. Will get help right away if you are not doing well or get worse. This information is not intended to replace advice given to you by your health care provider. Make sure you discuss any questions you have with your health care provider. Document Released: 11/02/2005 Document Revised: 01/28/2014 Document Reviewed: 10/02/2013 [facility] Patient Information 2015 [employer]. Family Medicine Antibiotic Medication Antibiotic medicine helps fight germs. Germs cause infections. This type of medicine will not work for colds, flu, or other viral infections. Tell your doctor if you: Are allergic to any medicines. Are or are trying to get . Are taking other medicines. Have other medical problems. HOME CARE Take your medicine with a glass of water or food as told by your doctor. Take the medicine as told. Finish them even if you start to feel better. Do not give your medicine to other people. Do not use your medicine in the future for a different infection. Ask your doctor about which side effects to watch for. Try not to miss any doses. If you miss a dose, take it as soon as possible. If it is almost time for your next dose, and your dosing schedule is: Two doses a day, take the missed dose and the next dose 5 to 6 hours later. Three or more doses a day, take the missed dose and the next dose 2 to 4 hours later, or double your next dose. Then go back to your normal schedule. GET HELP RIGHT AWAY IF: You get worse or do not get better within a few days. The medicine makes you sick. You develop a rash or any other side effects. You have questions or concerns. MAKE SURE YOU: Understand these instructions. Will watch your condition. Will get help right away if you are not doing well or get worse. This information is not intended to replace advice given to you by your health care provider. Make sure you discuss any questions you have with your health care provider. Document Released: 11/01/2008 Document Revised: 04/16/2012 Document Reviewed: 12/29/2009 [employer] Patient Information 2015 [employer]. No follow up information was provided. Extracted from: Title: Office Visit Note Author: Emory Segundo MD Date: 07/08/15 Assessment/Plan Abdominal pain the KUB flat and upright was unremarkable and the cbc showed improvement in the Hg from the ER visit. Ordered: Office Visit Level 4 Est 94640 Acute UTI Continue with the CIPRO. Ordered: Office Visit Level 4 Est 17987 Arthritis, rheumatoid Ordered: Office Visit Level 4 Est 23387
--- OUTSIDE RECORDS SUMMARY | 2017-01-21 14:23 | External Medical Summary | Referral Summary ---
:1930 Author Organization [facility] Address [address] [place] [address] [place] [address] Care Team Providers Name Role Phone Emory Segundo Primary Care Physician Encounter VC Date(s): 07/08/14 - 07/08/14 [facility] [address] [place] [address] [place] [phone] [place] Discharge Diagnosis: Recurrent [...] DAY, # 60 unknown unit, 2 Refill(s), [email or web address], TAKE 1 TABLET (30MG) BY ORAL ROUTE [...] REFILL, # 60 tabs, 5 Refill(s), eRx: [facility] 81626, TAKE 1 TABLET BY MOUTH TWICE A DAY. NEEDS APPT WITH PCP PRIOR TO REFILL Start Date: 08/04/14 Status: OrderedImodium A-D See Instructions, 2 mg Oral 2 hours after breakfast, 0 Refill(s) Start Date: 07/07/13 Status: Orderedmethotrexate 2.5 mg oral tablet See Instructions, 5 tabs Oral qWeek on Monday, # 15 tabs, 2 Refill(s), Pharmacy : [facility], please note change in dose, deactivate prior., [...] Follow Up With: Where: When: Emory Segundo [address] [place] [address] Drive; [facility] [place] [address] Business (1) Within 3 to 5 days Comments: Follow Up With: Where: When: Yaw Brambila [address] [place] [address] Drive; [facility] [place] [address] Business (1) In 6 months 01/07/2015 Comments: [...] counseling. Ordered: Office Visit Level 3 Est 68695 Orders: Urine Culture
--- OUTSIDE RECORDS SUMMARY | 2017-01-21 14:23 | External Medical Summary | Referral Summary ---
:1930 Author Organization [facility] Address [address] [place] [address] [place] [phone] Care Team Providers Name Role Phone Sanya Emory Lopez Primary Care Physician Encounter Date(s): 04/23/15 - 04/23/15 [facility], [address] [place] [phone] [place] Discharge Diagnosis: Restless leg syndrome Discharge Diagnosis: Rheumatoid arthritis Discharge Diagnosis: Osteoporosis Discharge Diagnosis: High risk medication use Discharge Disposition: 01-Home or Self Care Attending Physician: Silvia Ayon MD Admitting Physician: Silvia Ayon MD Vital Signs Most recent to oldest [Reference Range]: 1 Peripheral Pulse Rate [60-100 bpm] 58 bpm *LOW* (04/23/15 3:05 PM) Blood Pressure [90-140/60-90 mmHg] 153/71 mmHg *HI* (04/23/15 3:05 PM) Problem List Condition Effective Dates Status [...] DAY, # 60 unknown unit, 4 Refill(s), eRx:[facility] 68387, TAKE 1 TABLET (30MG) BY ORAL ROUTE EVERY DAY Start Date: 04/13/15 Status: Orderedalendronate 70 mg oral tablet See Instructions, 1 TABS ORAL QWEEK,INSTR:8 OZ PLAIN WATER, AT LEAST 30 MINS BEFORE FIRST FOOD, BEVERAGE, OR MEDICATION OF THE DAY. UPRIGHT 30 MINS., # 5 tabs, 2 Refill(s), eRx: [facility] [id number], 1 TABS ORAL QWEEK,INSTR:8 OZ PLAIN WATER, [...] AN APPT., # 60 tabs , eRx: [facility] [id number], 1 TABS ORAL BID,INSTR:LAST FILL. PT. NEEDS AN APPT. Start Date: 04/13/15 Status: OrderedImodium A-D See Instructions, 2 mg Oral 2 hours after breakfast, 0 Refill(s) Start Date: 07/07/13 Status: Orderedmethotrexate 2.5 mg oral tablet See Instructions, 4 TABS ORAL QWEEK, # 20 tabs, 3 Refill(s), Pharmacy: [facility] 18367, please note change in dose and disregard [...] Visit Note Author: Silvia Ayon MD Date: 04/23/15 Assessment/Plan 1.Rheumatoid arthritis She appears overall to be stable and there is no active disease. We will continue methotrexate at 10 mg periodI suggested she increase her folic acid to take it daily. 2.High risk medication use She recently have her for primary care doctor which is stable. 3.Osteoporosis Continue Dilantin a period we also discussed calcium and vitamin D today. 4.Restless leg syndrome She has anemia and ischemic tenderness associated restless like syndrome. She will try increasing her iron intake. She declines medications currently. Follow-up in 4 months. Orders: methotrexate, See Instructions, 4 TABS ORAL QWEEK, # 30 tabs, eRx: [facility] 63533, 6 TABS ORAL QWEEK
[2017-01-21] MEDS ORDERED: SALINE FLUSH 10ml SYRINGE IVF PRN (14:24)
--- OUTSIDE RECORDS SUMMARY | 2017-01-21 14:24 | External Medical Summary | Referral Summary ---
:1930 Author Organization [facility] Address [address] [place] [address] Care Team Providers Name Role Phone Sanya Emory Lopez Primary Care Physician Encounter VC Date(s): 08/12/14 - 08/12/14 [facility] [address] [place] [address]- [place] Discharge Diagnosis: Rheumatoid arthritis Discharge Disposition: 01-Home or Self Care Attending Physician: Silvia Ayon MD Admitting Physician: Silvia Ayon MD Vital Signs Most recent to oldest [Reference Range]: 1 Peripheral Pulse Rate [60-100 bpm] 57 bpm *LOW* (08/12/14 1:52 PM) Blood Pressure [90-140/60-90 mmHg] 131/70 mmHg (08/12/14 1:52 PM) Problem List Condition Effective Dates Status [...] EVERY DAY, # 60 unknown unit, eRx: [facility] [id number], TAKE 1 TABLET (30MG) BY ORAL ROUTE EVERY DAY Start Date: 02/09/15 Status: Orderedalendronate 70 mg oral tablet 70 mg 1 tabs, Oral, qWeek, 8 oz plain water, at least 30 mins before first food , beverage, or medication of the day. upright 30 mins., # 5 tabs, 2 Refill(s), [facility], 1 tabs Oral qWeek,Instr:8 oz plain water, [...] # 60 tabs, 0 Refill(s) , Pharmacy: [facility] 88045, 1 tabs Oral BID,Instr:LAST FILL. PT. NEEDS [...] Visit Note Author: Silvia Ayon MD Date: 08/12/14 Assessment/Plan Rheumatoid arthritis We will proceed with starting methotrexate. She was given a handout on this medication from the [employer] [facility]. I reviewed the potential risks which may occur with the medication including immunosuppression with risk of infection and malignancy, cytopenias, pulmonary toxicity, hepatotoxicityetc. We will start 5 tablets weekly with folic acid. I will fo llow-up in 4 weeks. She will let us know she has an problems with it. There is potential interaction with this medication and her trimethoprim. She states that she will stop the trimethoprim as sh jorge has been taking for years and assess how she does.
--- OUTSIDE RECORDS SUMMARY | 2017-01-21 14:24 | External Medical Summary | Referral Summary ---
:1930 Author Organization [facility] Address [address] [place] [address] [place] [address] Care Team Providers Name Role Phone Sanya Emory Jessica Primary Care Physician Encounter [facility] [id number] Date(s): 11/06/14 - 11/06/14 [facility], [address] [place] [phone] [place] Discharge Diagnosis: [...] DAY, # 60 unknown unit, 2 Refill(s), eRx:[facility] 89430, TAKE 1 TABLET (30MG) BY ORAL ROUTE [...] REFILL, # 60 tabs, 5 Refill(s), [facility], TAKE 1 TABLET BY MOUTH TWICE A DAY. NEEDS APPT WITH PCP PRIOR TO REFILL Start Date: 08/04/14 Status: OrderedImodium A-D See Instructions, 2 mg Oral 2 hours after breakfast, 0 Refill(s) Start Date: 07/07/13 Status: Orderedmethotrexate 2.5 mg oral tablet 15 mg 6 tabs, Oral, qWeek, # 30 tabs, 2 Refill(s), Pharmacy: [facility] 80688, please notechange in dose, deactivate prior., 6 tabs Oral [...] [0.80-3.30 10*3] 1.44 10*3 (11/06/14 3:41 PM) [place] [facility] [0.30-1.00 10*3] 0.64 10*3 (11/06/14 3:41 [...]
--- OUTSIDE RECORDS SUMMARY | 2017-01-21 14:24 | External Medical Summary | Referral Summary ---
:1930 Author Organization [facility] Address [address] [place] [address] Care Team Providers Name Role Phone Emory Segundo Primary Care Physician Encounter VC Date(s): 07/15/14 - 07/15/14 [facility] [address] [place] [address] [place] Discharge Diagnosis: Hypercholesteremia Discharge Diagnosis: Essential hypertension Discharge Diagnosis: RA (rheumatoid arthritis) Discharge Diagnosis: Sinus bradycardia Discharge Disposition: 01-Home or Self Care Attending Physician: Hao Amaya MD Admitting Physician: Hao Amaya MD Referring Physician: Emory Segundo MD Vital Signs Most recent to oldest [Reference Range]: 1 Peripheral Pulse Rate [60-100 bpm] 60 bpm (07/15/14 11:02 AM) Blood Pressure [90-140/60-90 mmHg] 132/70 mmHg (07/15/14 11:02 AM) Problem List Condition Effective Dates Status [...] DAY, # 60 unknown unit, 2 Refill(s), eRx:[facility] 88604, TAKE 1 TABLET (30MG) BY ORAL ROUTE EVERY DAY Start Date: 08/04/14 Status: Orderedalendronate 70 mg oral tablet 70 mg 1 tabs, Oral, qWeek, 8 oz plain water, at least 30 mins before first food , beverage, or medication of the day. upright 30 mins., # 5 tabs, 2 Refill(s), Pharmacy: [facility] 97288, 1 tabs Oral qWeek,Instr:8 oz plain water, [...] REFILL, # 60 tabs, 5 Refill(s), eRx: [facility] 59898, TAKE 1 TABLET BY MOUTH TWICE A [...] Visit Note Author: Hao Amaya MD Date: 07/20/14 Assessment/Plan 1.RA (rheumatoid arthritis) 2.Essential hypertension 3.Hypercholesteremia 4.Sinus bradycardia Discussion: From the standpoint of her cardiac concerns, we appear to be stable and I don't think additional testing is necessary at this point. From the standpoint of her rheumatoid arthritis, it does appear that there are major opportunities. Referral to rheumatology certainly does appear to be warranted and we help to facilitate that. She is to see us again in 1 year or any time as necessary. Referrals to Other Providersrheumatoid arthrits, referred to: Silvia Ayon MD Please refer to Dr. Ayon in rheumatology Referred by: Hao Amaya MD Referred by: Hao Amaya MD
--- OUTSIDE RECORDS SUMMARY | 2017-01-21 14:24 | External Medical Summary | Referral Summary ---
:1930 Author Organization [facility] Address [address] [place] [address] Care Team Providers Name Role Phone Emory Segundo Primary Care Physician Encounter VC Date(s): 09/22/15 - 09/22/15 [facility] [address] [place] [address]- [place] Discharge Diagnosis: Recurrent UTIs Discharge Diagnosis: Hematuria Discharge Disposition: 01-Home or Self Care Attending Physician: Fabiana Solomon MD Admitting Physician: Fabiana Solomon MD Referring Physician: Emory Segundo MD Vital Signs Most recent to oldest [Reference Range]: 1 Blood Pressure [90-140/60-90 mmHg] 122/72 mmHg (09/22/15 3:31 PM) Problem List Condition Effective Dates Status [...] DAY, # 60 unknown unit, 4 Refill(s), [facility], TAKE 1 TABLET (30MG) BY ORAL ROUTE EVERY DAY Start Date: 04/13/15 Status: Orderedatenolol 50 mg oral tablet 1/2 tabs, Oral, Daily, 0 Refill(s) Start Date: 01/09/15 Status: Orderedfolic acid 0.8 mg oral tablet 1.6 mg 2 tabs, Oral, Daily, 0 Refill(s) Start Date: 09/11/14 Status: OrderedFortax 1G Fortax 1G, See Instructions, Infuse 1G per IV q12 hours x7 days as per protocol. Fax to [facility] infusion [phone], # 14 Each, 0 Refill(s) Start Date: 09/11/15 Status: Orderedgemfibrozil 600 mg oral tablet See Instructions, TAKE 1 TABLET BY MOUTH TWICE DAILY, # 60 tabs, 2 Refill(s), eRx: [facility] [address], TAKE 1 TABLET BY MOUTH TWICE DAILY Start Date: 07/14/15 Status: Orderedmethotrexate 2.5 mg oral tablet See Instructions, 4 TABS ORAL QWEEK, # 20 tabs, 3 Refill(s), Pharmacy: [facility] [id number], please note change in dose and disregard prior script. deactivate prior dose. Thank you., 4 TABS ORAL QWEEK Start Date: 08/27/15 Status: OrderedMiraLax oral powder for reconstitution 17 g, Oral, Daily, dissolve in water before taking, # 255 g, 0 Refill(s) Start Date: 07/08/15 Status: OrderedVitamin D3 2,000 Intl_Units, Oral, Daily, 0 Refill(s) Start Date: 07/25/14 Status: Ordered Results Chemistry Most recent to oldest [Reference Range]: 1 Sodium Lvl [135-144 mEq/L] 138 mEq/L (09/22/15 4:55 PM) Potassium Lvl [3.5-5.2 mEq/L] 4.7 mEq/L (09/22/15 4:55 PM) Chloride [99-111 mEq/L] 105 mEq/L (09/22/15 4:55 PM) CO2 [22-31 mEq/L] 22 mEq/L (09/22/15 4:55 PM) AGAP [3-20] 11 (09/22/15 4:55 PM) BUN [10-20 mg/dL] 18 mg/dL (09/22/15 4:55 PM) Glucose Lvl [70-99 mg/dL] 90 mg/dL (09/22/15 4:55 PM) Creatinine Lvl [0.57-1.11 mg/dL] 0.89 mg/dL (09/22/15 4:55 PM) eGFR [>60 mL/min] >60 mL/min 1 (09/22/15 4:55 PM) Calcium Lvl [8.9-10.5 mg/dL] 9.8 mg/dL (09/22/15 4:55 PM) 1Result Comment: Multiply eGFR results by [...] Extracted from: Title: Office Visit Note Author: Fabiana Solomon MD Date: 09/22/15 Assessment/Plan 1.Recurrent UTIs Given she has recurrent UTIs will schedule her for further evaluation to rule out bacterial persistence secondary to urinary calculi, anatomic abnormalities leading to poor drainageorurinary retention. Will schedule patient for cystoscopy and pelvic exam at next visit. Cont PICC line for now. Suggested increased fluid intake,OTC D-Mannose and cranberry pills for UTI prevention. Her problem list also includes urethral stenosis and urethral stricture which she is unaware of - will evaluate this during cystoscopy and pelvic exam. 2.Hematuria This is likely from her UTIs. Will include CT urogram to rule out filling defects or masses. Urine cytology Will perform cystoscopy and pelvic exam at next visit.
--- OUTSIDE RECORDS SUMMARY | 2017-01-21 14:24 | External Medical Summary | Referral Summary ---
:1930 Author Organization [facility] [place] [address] Care Team Providers Name Role Phone Emory Segundo Primary Care Physician Encounter VC Date(s): 12/16/14 - 12/16/14 [facility] [place] [phone] [place] Discharge Disposition: [...] DAY, # 60 unknown unit, 2 Refill(s), eRx:[facility] 95802, TAKE 1 TABLET (30MG) BY ORAL ROUTE EVERY DAY Start Date: 08/04/14 Status: Orderedatenolol 50 mg oral tablet See Instructions, TAKE 1 TABLET BY MOUTH TWICE A DAY., # 60 unknown unit, eRx: [facility] 05725, TAKE 1 TABLET BY MOUTH TWICE A DAY. Start Date: 12/15/14 Status: OrderedFiberCon 625 mg oral tablet See [...] REFILL, # 60 tabs, 5 Refill(s), eRx: [facility] 58114, TAKE 1 TABLET BY MOUTH TWICE A DAY. NEEDS APPT WITH PCP PRIOR TO REFILL Start Date: 08/04/14 Status: OrderedImodium A-D See Instructions, 2 mg Oral 2 hours after breakfast, 0 Refill(s) Start Date: 07/07/13 Status: Orderedmethotrexate 2.5 mg oral tablet See Instructions, 5 tabs Oral qWeek on Monday, # 15 tabs, 2 Refill(s), Pharmacy : [facility] [id number], please note change in dose, deactivate prior., [...]
--- OUTSIDE RECORDS SUMMARY | 2017-01-21 14:24 | External Medical Summary | Referral Summary ---
:1930 [facility] Address [address] [place] [address] [place] [address] Care Team Providers Name Role Phone Emory Segundo Primary Care Physician Encounter VC Date(s): 12/04/14 - 12/04/14 [facility] [place] [phone] [place] Discharge Disposition: 01-Home or Self Care Attending Physician: Emory Segundo MD Admitting Physician: Emory Segnudo MD Vital Signs Most recent to oldest [...] DAY, # 60 unknown unit, 4 Refill(s), eRx:[facility]252, TAKE 1 TABLET (30MG) BY ORAL ROUTE EVERY DAY Start Date: 04/13/15 Status: Orderedalendronate 70 mg oral tablet See Instructions, 1 TABS ORAL QWEEK,INSTR:8 OZ PLAIN WATER, AT LEAST 30 MINS BEFORE FIRST FOOD, BEVERAGE, OR MEDICATION OF THE DAY. UPRIGHT 30 MINS., # 5 tabs, 2 Refill(s), eRx: [facility] 27518, 1 TABS ORAL QWEEK,INSTR:8 OZ PLAIN WATER, [...] MOUTH TWICE DAILY, # 60 tabs, eRx: [facility] 65059, TAKE 1 TABLET BY MOUTH TWICE DAILY Start Date: 06/09/15 Status: OrderedImodium A-D See Instructions, 2 mg Oral 2 hours after breakfast, 0 Refill(s) Start Date: 07/07/13 Status: Orderedmethotrexate 2.5 mg oral tablet See Instructions, 4 TABS ORAL QWEEK, # 20 tabs, 3 Refill(s), [facility] [id number], please note change in dose and disregard [...] Author: Emory Segundo MD Date: Family Medicine Hypertension Hypertension is another name for high blood pressure. High blood pressure forces your heart to work harder to pump blood. A blood pressure reading has two numbers, which includes a higher number over a lower number (example: 110/72 ). HOME CARE Have your blood pressure rechecked by your doctor. Only take medicine as told by your doctor. Follow the directions carefully. The medicine does not work as well if you skip doses. Skipping doses also puts you at risk for problems. Do not smoke. Monitor your blood pressure at home as told by your doctor. GET HELP IF: You think you are having a reaction to the medicine you are taking. You have repeat headaches or feel dizzy. You have puffiness (swelling) in your ankles. You have trouble with your vision. GET HELP RIGHT AWAY IF: You get a very bad headache and are confused. You feel weak, numb, or faint. You get chest or belly (abdominal) pain. You throw up (vomit). You cannot breathe very well. MAKE SURE YOU: Understand these instructions. Will watch your condition. Will get help right away if you are not doing well or get worse. Document Released: 07/11/2008 Document Revised: 01/28/2014 Document Reviewed: 11/15/2013 ExitCare Patient Information 2015 sifonr, silkfred. This information is not intended to replace advice given to you by your health care provider. Make sure you discuss any questions you have with your health care provider. No follow up information was provided. Extracted from: Title: Office Visit Note Author: Emory Segundo MD Date: 12/04/14 Assessment/Plan Fractured hip Follow up with Ortho Ordered: Office Visit Level 4 Est 58770 Hypertension Continue with the current medications and follow up with Rheumatology. Ordered: Office Visit Level 4 Est 12778 Hypertriglyceridemia Ordered: Office Visit Level 4 Est 26859 Rheumatoid arthritis flare Ordered: Office Visit Level 4 Est 31982
--- OUTSIDE RECORDS SUMMARY | 2017-01-21 14:24 | External Medical Summary | Continuity of Care Document ---
:1930 Author Organization [facility] Allergies Active Description Code Type Severity Reaction Onset Reported/ Identified Relationship Clinical to Patient Status Yes No Known 52688 3 N/A N/A Allergies 8 Medications There is no data. Problems Date Dx Coded Attending Type Code Diagnosis Diagnosed By 12/05/2014 W Z48.89 Encounter for other specified surgical aftercare 12/25/2014 W Z48.89 Encounter for other specified surgical aftercare 02/13/2015 W Z48.89 Encounter for other specified surgical aftercare Procedures Code [place] [address] POSTOP 12/05/2014 FOLLOW-UP VISIT Results There is no data. Encounters ACCT Visit Discharge Status Pt. Type Provider Facility Loc./Unit Complaint No. Date/Time [id number] 02/13/2015 02/13/2015 [facility] Outpatient [facility] 09:00:00 23:59:59 [facility]
--- OUTSIDE RECORDS SUMMARY | 2017-01-21 14:24 | External Medical Summary | Referral Summary ---
:1930 Author Organization [facility] Address [address] [place] [address] [place] [phone] Care Team Providers Name Role Phone Emory Segundo Primary Care Physician Encounter VC Date(s): 07/08/14 - 07/08/14 [facility] [address] [place] [address] [place] [phone] [place] Discharge Diagnosis: Recurrent [...] DAY, # 60 unknown unit, 2 Refill(s), [facility] [address], TAKE 1 TABLET (30MG) BY ORAL ROUTE [...] REFILL, # 60 tabs, 5 Refill(s), eRx: [facility] 86102, TAKE 1 TABLET BY MOUTH TWICE A DAY. NEEDS APPT WITH PCP PRIOR TO REFILL Start Date: 08/04/14 Status: OrderedImodium A-D See Instructions, 2 mg Oral 2 hours after breakfast, 0 Refill(s) Start Date: 07/07/13 Status: Orderedmethotrexate 2.5 mg oral tablet See Instructions, 5 tabs Oral qWeek on Monday, # 15 tabs, 2 Refill(s), Pharmacy : [facility] [id number], please note change in dose, deactivate prior., [...] Follow Up With: Where: When: Emory Segundo [address] [place] [address] Drive; [facility] [place] [phone] Business (1) Within 3 to 5 days Comments: Follow Up With: Where: When: Yaw Brambila [address] [place] [address] Drive; [facility] [place] [address] Business (1) In 6 months 01/07/2015 Comments: [...] counseling. Ordered: Office Visit Level 3 Est 76537 Orders: Urine Culture
--- OUTSIDE RECORDS SUMMARY | 2017-01-21 14:24 | External Medical Summary | Referral Summary ---
:1930 Author Organization [facility] Address [address] [place] [address] [place] [phone] Care Team Providers Name Role Phone Emory Segundo Primary Care Physician Encounter VC Date(s): 07/08/14 - 07/08/14 [facility] [address] [place] [address] [place] [phone] [place] Discharge Diagnosis: Recurrent [...] DAY, # 60 unknown unit, 2 Refill(s), [facility] [address], TAKE 1 TABLET (30MG) BY ORAL ROUTE [...] REFILL, # 60 tabs, 5 Refill(s), eRx: [facility] 58860, TAKE 1 TABLET BY MOUTH TWICE A DAY. NEEDS APPT WITH PCP PRIOR TO REFILL Start Date: 08/04/14 Status: OrderedImodium A-D See Instructions, 2 mg Oral 2 hours after breakfast, 0 Refill(s) Start Date: 07/07/13 Status: Orderedmethotrexate 2.5 mg oral tablet See Instructions, 5 tabs Oral qWeek on Monday, # 15 tabs, 2 Refill(s), Pharmacy : [facility] [address], please note change in dose, deactivate prior., [...] Follow Up With: Where: When: Emory Segundo [address] [place] [address] Drive; [facility] [place] [phone] Business (1) Within 3 to 5 days Comments: Follow Up With: Where: When: Yaw Brambila [address] [place] [address] Drive; [facility] [place] [address] Business (1) In 6 months 01/07/2015 Comments: [...] counseling. Ordered: Office Visit Level 3 Est 66687 Orders: Urine Culture
--- NOTE | 2017-01-21 14:25 | Emergency Department Report ---
General Adult HPI - General Chief complaint: Medical Emergency Stated complaint: weakness Time Seen by Provider: 01/21/17 14:17 Source: patient, family Mode of arrival: wheelchair Limitations: altered mental status - History of Present Illness HPI narrative: 86-year-old female presents to the emergency department with her family with the chief complaint of altered mental status. Patient's family noted onset of symptoms earlier today before noon. The patient was seen by her son this morning before he went out to run errands and when he returned home she was confused and behaving abnormally. Patient was not as sharp cognitively as she normally is. Patient was trying to read a coaster believing she was reading instructions for a device in her home. Patient was being treated for a UTI with Cipro up until yesterday evening when the Cipro was stopped and she was started on Macrobid by her primary care physician. Patient denies any pain or discomfort. No other complaints or associated symptoms. She was at home when her symptoms began. Symptoms have been persistent in nature since onset. - Related Data Home Medications Medication Instructions Recorded Confirmed NIFEdipine [Nifedipine ER] 30 mg PO DAILY #0 11/12/14 01/21/17 Calcium Polycarbophil [Fibercon] 2 tab PO DAILY #0 11/13/14 01/21/17 Acetaminophen [Acetaminophen Extra 500 mg PO 6XD PRN 01/21/17 01/21/17 Strength] Atenolol [Tenormin] 25 mg PO DAILY 01/21/17 01/21/17 Gemfibrozil [Lopid] 600 mg PO BID 01/21/17 01/21/17 Nitrofurantoin Macrocrystal 100 mg PO BID 01/21/17 01/21/17 [Nitrofurantoin] Allergies Allergy/AdvReac Type Severity Reaction Status Date / Time cephalexin AdvReac Mild DIARREAH Verified 01/21/17 14:55 Review of Systems Limitations: ROS unobtainable due to patient's medical condition PFSH Patient Stated Medical History Hypertension Yes Osteoarthritis Yes Metabolic: hypercholesterolemia, hypertension, hypothyroidism Female: UTI Musculoskeletal: osteoarthritis, rheumatoid arthritis Surgical History: Wrist repair. Partial thyroidectomy. Cystoscopy-urethral stricture. Left bipolar hemiarthroplasty Family History: Reviewed and noncontributory - Social History Smoking status: Never smoker Substance use type: does not use Alcohol intake frequency: does not drink Physical Exam - Limitations Limitations: altered mental status - General General appearance: alert, in no apparent distress - Normal Exams: Head:: Normocephalic without trauma Eyes:: Pupils are PERRLA w/ EOMI, No scleral icterus, irritation, or foreign bodies noted ENMT:: No facial trauma, nasal exudates, pharyngeal erythema, or exudates are noted Dental: No fractured, loose, or missing teeth noted Neck:: Full range of motion, without adenopathy, JVD, bruits or thyromegaly Chest/Respirations:: Clear all robert, with good airflow, and symmetry bilaterally Cardiovascular:: Regular rate and rhythm, without murmur or gallop, Pulses 2+ all extremities, capillary refill, <2 seconds all extremities Abdomen:: Bowel sounds positive, soft, non-tender, non-distended, no hepatosplenomegaly, masses or bruits noted Lymphatic:: No lymphadenopathy, or lymphedema noted Musculoskeletal:: No tenderness, or deformity noted, good range of motion, all extremities Integumentary:: No rashes, hives, or bruising noted, hair and nails, without abnormality Neurological:: Patient is alert (oriented 2. No focal deficit.) Course Vital Signs Temperature 98.1 F 01/21/17 14:10 Pulse Rate 86 01/21/17 14:10 Respiratory Rate 18 01/21/17 14:10 Blood Pressure 177/78 H 01/21/17 14:10 Pulse Oximetry 96 01/21/17 14:10 Temperature 98.1 F 01/21/17 14:10 Pulse Rate 78 01/21/17 16:07 Respiratory Rate 18 01/21/17 14:10 Blood Pressure 164/70 H 01/21/17 16:07 Pulse Oximetry 95 01/21/17 16:07 Medical Decision Making - [facility] Narrative Medical decision making narrative: Labs / imaging were discussed in detail with the patient and family and questions are answered. Patient has a left bundle branch block noted on her EKG and I am unable to find a comparison EKG. Patient is reviewed with cardiology Dr. Atkins at this time and without chest pain and undetectable troponin patient will be monitored at this point. Patient is a DO NOT RESUSCITATE. Patient is given 500 mL normal saline intravenously times one. I do not have a source of infection to treat with antibiotic therapy at this time. Sepsis markers are ordered and will be monitored by the accepting physician Dr. Stoner who is in agreement with the current plan of management. Patient is admitted to the hospital in stable condition. Patient and family are in agreement with the current plan of management. No further orders from accepting physician who is in agreement with the current plan of management. - Differential Diagnosis UTI, medication reaction, metabolic disorder, neurologic event - Lab Data Result diagrams: 01/21/17 14:39 01/21/17 14:39 Lab Results 01/21/17 01/21/17 01/21/17 Range/Units 14:39 14:39 15:40 WBC 9.1 (4.5-11.0) T/MM3 RBC 4.07 (4.00-5.20) M/MM3 Hgb 12.2 (12-16) GM/DL Hct 38.7 (36-46) % MCV 95.1 (80-100) UM3 MCH 30.0 (26-34) UUG MCHC 31.5 (31-37) GM/DL RDW Std Deviation 47.2 (36.9-50.2) FL Plt Count 354 (130-400) T/MM3 MPV 9.1 L (9.4-12.4) UM3 Immature Gran % (Auto) 0.3 (0.0-0.5) % Neut % (Auto) 82.1 H (33-66) % Lymph % (Auto) 8.6 L (23-45) % Stewart % (Auto) 6.0 (0-9.0) % Eos % (Auto) 2.9 (0-4) % Baso % (Auto) 0.1 (0-2) % Neut # (Auto) 7.4 (1.8-7.7) T/MM3 Lymph # (Auto) 0.8 L (1-4.8) T/MM3 Stewart # (Auto) 0.5 (0-0.8) T/MM3 Eos # (Auto) 0.3 (0-0.5) T/MM3 Baso # (Auto) 0.0 (0-0.2) T/MM3 Abs Immat Gran (auto) 0.03 (0.00-0.03) T/MM3 Turbidity < 20 (0-20) Sodium 140 (134-144) MEQ/L Potassium 4.1 (3.6-5) MEQ/L Chloride 106 (98-107) MEQ/L Carbon Dioxide 21 L (22-30) MEQ/L Anion Gap 13 (5-15) MEQ/L BUN 17.0 (7-17) MG/DL Creatinine 0.9 (0.7-1.2) MG/DL GFR Calculation 60 BUN/Creatinine Ratio 19 (6-26) RATIO Glucose 112 H (65-110) MG/DL Calculated Osmolality 272 (261-280) MOSM/KG Calcium 9.2 (8.4-10.2) MG/DL Total Bilirubin 0.40 (0.20-1.30) MG/DL Icterus Index < 2 (0-7) AST 24 (14-36) U/L ALT 18 (9-52) U/L Alkaline Phosphatase 117 (38-126) U/L Troponin I < 0.012 (0-0.12) ng/ml Total Protein 8.1 (6.3-8.2) G/DL Albumin 4.4 (3.5-5.0) G/DL Globulin 3.7 H (2.4-3.6) G/DL Albumin/Globulin Ratio 1.2 (1.1-2.2) RATIO Specimen Hemolysis 16 (0-25) Ur Collection Type Urine, catheter Urine Color Yellow (YELLOW) Urine Clarity Clear Urine pH 6.0 (5.0-8.0) Ur Specific [place] 1.015 (1.015-1.025) Urine Protein Negative (NEGATIVE) Urine Glucose (UA) Negative (NEGATIVE) Urine Ketones Negative (NEGATIVE) Urine Occult Blood Trace-intact (NEGATIVE) Urine Nitrate Negative (NEGATIVE) Urine Bilirubin Negative (NEGATIVE) Urine Urobilinogen 0.2 (NORMAL) EU/DL Ur Leukocyte Esterase Negative (NEGATIVE) Urinalysis Comment Microscopic not ind. - Radiology Data CXR - No obvious acute processes. CT Head - No acute processes. - EKG Data EKG #1 EKG results narrative: Sinus rhythm with first-degree AV block. Left axis deviation. Left bundle branch block. 76 bpm. No STEMI. Disposition Clinical Impression: Altered mental status Qualifiers: Altered mental status type: unspecified Qualified Code(s): R41.82 - Altered mental status, unspecified Condition: Stable Time of Disposition: 16:10 (Admit. Dr. Stoenr. ) - Seen By: physician
[2017-01-21] MEDS ORDERED: NS 1,000 ML IV ONE (16:07)
--- NOTE | 2017-01-21 17:00 | History & Physical Report ---
History of Present Illness Date: 01/21/17 Chief complaint: confusion HPI: Lia is an 86 yo WF who resides with her son. She has recently been treated for a UTI with ciprofloxacin. She was seen in by her PCP yesterday and was found that the infection was not improving. She was then changed to macrobid, which she started last night. Daughter is with her today. Reports that her brother felt she was at baseline upon awakening. He went to check the mail, (mailbox is in the neighborhood, so unclear on timeline). When he came back to their home, he found her confused, and with strange repetitive movements, such as poking her nose and trying to read a coaster. They decided to bring her into the ER. The patient is confused , and the daughter does not really have a complete history, so baseline is difficult. I have reviewed her past records at length and most of her history is obtained from there. She is noted to have significant urinary issues in the past. She has been seen by Dr. Brambila, and had undergone recurrent cystoscopy for Chronic trigonitis, tribeculated bladder, urethral stenosis. She also underwent several intra- bladder collagen injections due to incontinence and intrinsic sphincter weakness. She is noted to have an abnormal EKG. Patient cannot tell me if she has heart concerns. Daughter states that she had seen Dr. Amaya in years past, as he was her dad's pathology manager. Dr. Amaya had told her she had evidence of a "silent heart attack" in the past, but did not find acute concerns apparently. Both patient and daughter are unclear if she has been currently experiencing chest pain. none currently. Patient has been seen in the ER for abdominal pain and weight loss with fairly benign evaluation in the past. She does admit that her pelvis has been hurting intermittently "but it's better now." Denies fever or chills. No cough or congestion. Daughter states that she has been confused, and her speech 'doesn't quite sound like her', but she is not sure if pt. has been slurring her words. No focal weakness or loss of arm strength. Reports that she did have some difficulty standing, but is unclear if gait is affected. Review of Systems ROS unobtainable: due to mental status Review of systems: See HPI for obtainable ROS PFSH HTN Hyperlipidemia RA OA Right humerus fracture Urinary retention/incontinence Recurrent UTI Parathyroid adenoma Possible past CAD? Surgical History: Wrist repair. Partial parathyroidectomy. Cystoscopy- urethral stricture- multiple. Left bipolar hemiarthroplasty. Hysterectomy Family History: HTN HLD - Social History Smoking status: Never smoker Alcohol intake frequency: does not drink Housing: house Household members: children Current occupational status: retired Medications Home Medications Medication Instructions Recorded Confirmed Type NIFEdipine [Nifedipine ER] 30 mg PO DAILY #0 11/12/14 01/21/17 History Calcium Polycarbophil [Fibercon] 2 tab PO DAILY #0 11/13/14 01/21/17 History Acetaminophen [Acetaminophen Extra 500 mg PO 6XD PRN 01/21/17 01/21/17 History Strength] Atenolol [Tenormin] 25 mg PO DAILY 01/21/17 01/21/17 History Gemfibrozil [Lopid] 600 mg PO BID 01/21/17 01/21/17 History Nitrofurantoin Macrocrystal 100 mg PO BID 01/21/17 01/21/17 History [Nitrofurantoin] Allergies Allergy/AdvReac Type Severity Reaction Status Date / Time cephalexin AdvReac Mild DIARREAH Verified 01/21/17 14:55 Exam Vital Signs: Temperature 98.1 F 01/21/17 14:10 Pulse Rate 78 01/21/17 16:07 Respiratory Rate 18 01/21/17 14:10 Blood Pressure 164/70 H 01/21/17 16:07 Pulse Oximetry 95 01/21/17 16:07 Telemetry Rhythm: Sinus Rhythm Telemetry Ectopy: Bundle Branch Block, Frequent PVC - Constitutional Present: mild distress, average body habitus, cooperative, other (confused, restless) - Routine HEENT Exam Head: Present: normocephalic, atraumatic. Absent: abrasion, laceration Eye: Present: EOMI, PERRL ENT: Present: mucous membranes dry. Absent: dentition normal - Routine Neck Exam Present: supple. Absent: JVD, tenderness - Routine Respiratory Exam Present: CTA bilaterally. Absent: rales, rhonchi, wheezes - Routine Cardiovascular Exam Present: RRR, S1, S2, no murmur - Routine Abdominal Exam Present: soft, tenderness (pelvic TTP. Bladder may be a bit distended. ) - Routine Extremities Exam Present: no edema, non tender - Routine Skin Exam Present: intact, dry, pallor, warm - Routine Neurological Exam Present: alert, altered mental status, moving all extremities. Absent: oriented X3 - Routine Psychiatric Exam Present: cooperative. Absent: normal affect, good insight, good judgment Results - Labs CBC & Chem 7: 01/21/17 14:39 01/21/17 14:39 - Impressions CXR negative CT head negative Assessment and Plan (1) Altered mental status Current visit: Yes Status: Acute Assessment and Plan: Impression: Acute Altered Mental status Recent dysuria with presumed UTI H/O recurrent UTI with ureteral stricture Dehydration HTN HLD OA/RA Plan: 01/21/17- H&P *IVF. Observe neuro status. If no improvement with supportive care, consider MRI, but exam is not c/w a stroke. Hold antibiotics and observe. Check a MTX level and UDS. She is immunosuppressed, but does not appear infected. *H/O recurrent cystoscopy. Check renal sono with bladder as well. Bladder scan. Assess KUB due to hx of constipation. *Continue home medications as appropriate *Abnormal EKG- assess tele. Serial troponin. May need echo in the future. Will maintain safe environment and observe. repeat labs in AM. D/W Dr. Stoner DVT Prophylaxis: SCD's Resuscitation Status: Do Not Resuscitate - Physician Narrative Physician: Funmilayo Stoner MD Narrative: Date: 01/21/17 Time: 1754 I have independently evaluated and examined this patient. I reviewed the chart, the patient's history, and the SENIOR ENERGY CONSULTANT/PA's documented findings as above. We discussed and formulated the assessment and plan as above with additions as below: Mrs. Milner was seen with several of her children at the bedside. They indicate that she is slowly getting better and she is able to provide some history at present. She reports that she feels like she needs to urinate all the time but denies dysuria. She is voiding about hourly and describes fair urine volumes when she goes. She was initially treated with Cipro for one week with treatment initiated on 01/09 for probable uncomplicated cystitis but at that time she was unable to leave a urine sample when she was seen in the office. She completed the antibiotic about a week ago and subsequently contacted the office on 01/19 describing persistent symptoms. A UA was obtained yesterday at Dr. Martin's office with dipstick revealing 2+ leukocytes but negative nitrites, +1 blood, + 1 protein, cloudy urine with pH of 6. Macrobid was started with first dose taken yesterday evening and second dose this morning. A little after noon she began behaving abnormally as described above. Her son reports that she was shaking and seemed cold. He goes on to say she "seemed drugged". Family members report no diaphoresis or recognized fever and report the patient has a minor chronic cough which is unchanged from the past. Family members report a variety of symptoms described earlier today or in the recent past including abdominal pain, trouble swallowing, and headache for 3 days all of which the patient currently denies. NAD, alert, follows simple commands Oriented to [facility], 2008 Facial structure symmetric, EOMI, oropharynx clear, tongue midline Rheumatoid deformities of the hands bilaterally Sensation intact 4 extremities No drift of the upper extremities, rubber press operator symmetric-4/5 Raises each leg off the bed and holds it up against gentle resistance Respirations nonlabored, breath sounds clear anteriorly Regular rhythm, S1-S2 Abdomen benign Chest x-ray unremarkable by my review, CT head also reviewed-minor atrophy/ nonspecific small vessel changes but no acute pathology. EKG with left bundle branch block, sinus rhythm. Acute encephalopathy-possible drug reaction to Macrobid. Urinalysis unremarkable. Managed conservatively and reassess in a.m. UA unremarkable, check post void residuals to exclude urinary retention causing recurrent bladder symptoms. Patient denies dysuria at present but reports sensation that she has to void frequently. EKG with left bundle branch block-no old tracing available in our system. Patient confirms DO NOT RESUSCITATE order; family does not believe she has a DPOA-patient believes is on file here. Discussed with Dr. Venegas, outpatient records reviewed. Images reviewed by myself. Hospital Course Summary Disclaimer: The visit summary below is not to be considered part of the above Progress Note. Hospital Course: 01/21/17 17:14 01/21/17- H&P *IVF. Observe neuro status. If no improvement with supportive care, consider MRI, but exam is not c/w a stroke. Hold antibiotics and observe. Check a MTX level and UDS. She is immunosuppressed, but does not appear infected. *H/O recurrent cystoscopy. Check renal sono with bladder as well. Bladder scan. Assess KUB due to hx of constipation. *Continue home medications as appropriate *Abnormal EKG- assess tele. Serial troponin. May need echo in the future. Will maintain safe environment and observe. repeat labs in AM. D/W Dr. Stoner 01/21/17 17:14 Impression: Acute Altered Mental status Recent dysuria with presumed UTI H/O recurrent UTI with ureteral stricture Dehydration HTN HLD OA/RA Addendum entered and electronically signed by Melissa Paulino APRN 01/21/17 17:19 : Per ED physician- patient is confirmed a DNR. I will enter order. Dr. Atkins reviewed cardiology records and did not appreciate an acute cardiac event while in the ER.
[2017-01-21] MEDS ORDERED: ACETAMINOPHEN 500 MG TABLET PO PRN (17:17)
[2017-01-21] MEDS ORDERED: ONDANSETRON 4 MG/2 ML INJECTION IVP PRN (17:20)
[2017-01-21 17:29] VITALS: BMI 22.1
[2017-01-21] MEDS: NS 1,000 ML IV SCH (18:37)
[2017-01-22] MEDS: NS 1,000 ML IV SCH ×2 (04:53→15:02)
[2017-01-22 07:36] VITALS: O2SAT 96
[2017-01-22] MEDS ORDERED: ATENOLOL 25 MG PO SCH (09:00)
[2017-01-22] MEDS ORDERED: NIFEDIPINE 30 MG PO SCH (09:00)
--- NOTE | 2017-01-22 13:35 | CT Scan Report ---
Indication: AMS PROCEDURE: CT head/brain wo con: Encounter: Initial Comparison: None Technique: Axial CT images through the head were performed without contrast. Iterative Reconstruction dose reducing technique was utilized. FINDINGS: Mild to moderate atrophy. The ventricles are of normal size, shape, and contour for the patient's age. There are numerous areas of low attenuation in the white matter which most likely represent changes from chronic microvascular ischemia. The brainstem, cerebellum, and cerebral hemispheres otherwise have a normal morphology and CT attenuation. There is no evidence of midline displacement. No hemorrhage, signs of acute territorial stroke, mass effect, mass lesions, or edema is evident. The visualized portions of the skull base, midface, and calvarium demonstrate no abnormality. The paranasal sinuses are well aerated and free of significant disease. The tympanic and mastoid cavities appear normal. IMPRESSION: No acute intracranial abnormality or hemorrhage. There is a preliminary report by [facility]. .
--- NOTE | 2017-01-22 13:36 | XRay Report ---
Indication: AMS PROCEDURE: XR chest 1V: Encounter: Initial Comparison: None FINDINGS: The lungs are hyperinflated, but grossly clear. There is no consolidative pneumonia, pleural effusion or pneumothorax identified. The heart size, pulmonary vasculature and mediastinum are within normal limits. IMPRESSION: No acute cardiopulmonary abnormality. COPD. .
[2017-01-22 15:11] VITALS: BP 98/49; RESP 20; TEMP 97.6
[2017-01-22] MEDS ORDERED: ASPIRIN *EC* 81 MG TABLET PO SCH (16:00)
--- NOTE | 2017-01-22 16:37 | Discharge Summary ---
Discharge Information Date of admission: 01/21/17 16:12 Anticipated date of discharge: 01/22/17 Attending Physician: Funmilayo Stoner MD Primary care physician: Case Martin MD - Discharge Diagnosis (1) Altered mental status Status: Acute Acute Altered Mental status Recent dysuria with presumed UTI H/O recurrent UTI with ureteral stricture Dehydration HTN HLD OA/RA Hypokalemia, 01/22/17 - Laboratory Labs: 01/22/17 04:10 01/22/17 04:10 UA on admission negative nitrite, ketones, leukocyte esterase (catheter specimen ). Repeat UA on 01/22+1 occult blood, negative nitrite, trace leukocyte esterase, 0 -1 RBC, 1-3 WBC, trace bacteria (voided specimen) Urine drug screen negative - Microbiology Microbiology 01/21/17 18:00 Peripheral/Iv Start Blood Culture - Preliminary Culture Initiated - Results Pending 01/21/17 17:01 Peripheral/Iv Start Blood Culture - Preliminary Culture Initiated - Results Pending - Radiology Radiology: Portable chest x-ray on admission was without acute cardiopulmonary abnormalities; lungs hyperinflated. Noncontrast CT head on admission: Mild to moderate atrophy. The ventricles are of normal size, shape, and contour for the patient's age. There are numerous areas of low attenuation in the white matter which most likely represent changes from chronic microvascular ischemia. The brainstem, cerebellum, and cerebral hemispheres otherwise have a normal morphology and CT attenuation. There is no evidence of midline displacement. No hemorrhage, signs of acute territorial stroke, mass effect, mass lesions, or edema is evident. The visualized portions of the skull base, midface, and calvarium demonstrate no abnormality. The paranasal sinuses are well aerated and free of significant disease. The tympanic and mastoid cavities appear normal. IMPRESSION: No acute intracranial abnormality or hemorrhage. History of Present Illness HPI: Lia is an 86 yo WF who resides with her son. She has recently been treated for a UTI with ciprofloxacin. She was seen in by her PCP yesterday and was found that the infection was not improving. She was then changed to macrobid, which she started last night. Daughter is with her today. Reports that her brother felt she was at baseline upon awakening. He went to check the mail, (mailbox is in the neighborhood, so unclear on timeline). When he came back to their home, he found her confused, and with strange repetitive movements, such as poking her nose and trying to read a coaster. They decided to bring her into the ER. The patient is confused , and the daughter does not really have a complete history, so baseline is difficult. I have reviewed her past records at length and most of her history is obtained from there. She is noted to have significant urinary issues in the past. She has been seen by Dr. Brambila, and had undergone recurrent cystoscopy for Chronic trigonitis, tribeculated bladder, urethral stenosis. She also underwent several intra- bladder collagen injections due to incontinence and intrinsic sphincter weakness. She is noted to have an abnormal EKG. Patient cannot tell me if she has heart concerns. Daughter states that she had seen Dr. Amaya in years past, as he was her dad's senior oracle applications developer. Dr. Amaya had told her she had evidence of a "silent heart attack" in the past, but did not find acute concerns apparently. Both patient and daughter are unclear if she has been currently experiencing chest pain. none currently. Patient has been seen in the ER for abdominal pain and weight loss with fairly benign evaluation in the past. She does admit that her pelvis has been hurting intermittently "but it's better now." Denies fever or chills. No cough or congestion. Daughter states that she has been confused, and her speech 'doesn't quite sound like her', but she is not sure if pt. has been slurring her words. No focal weakness or loss of arm strength. Reports that she did have some difficulty standing, but is unclear if gait is affected. Hospital Course This is a general summary of the patient's hospital course. For more details refer to the complete medical record. Hospital course: 01/21/17 17:14 01/21/17- H&P *IVF. Observe neuro status. If no improvement with supportive care, consider MRI, but exam is not c/w a stroke. Hold antibiotics and observe. Check a MTX level and UDS. She is immunosuppressed, but does not appear infected. *H/O recurrent cystoscopy. Check renal sono with bladder as well. Bladder scan. Assess KUB due to hx of constipation. *Continue home medications as appropriate *Abnormal EKG- assess tele. Serial troponin. May need echo in the future. Will maintain safe environment and observe. repeat labs in AM. D/W Dr. Stoner Mrs. Milner was hospitalized under observation basis for assessment of altered mental status. By the time she arrived on the medical unit symptoms were beginning to clear and she was able to answer some questions and follow simple commands when seen by me at 6 PM on the date of admission. Family reported that she "seemed drugged" when symptoms started but urine drug screen was negative. Noncontrast CT of the head was without focal abnormalities and neurological exam in both the ER and on arrival on the floor and the following day were consistently unremarkable. The patient's power was normal when she arrived on the medical unit and remained normal with ability to ambulate thereafter. At some point MRI was suggested as a possible follow-up study but I don't see any indication for MRI at this time. I have recommended that the patient consider daily aspirin use at 81 mg daily as she has a history of both hypertension and a lipid disorder. The patient described urinary frequency but denied dysuria; nursing reported patient voiding small volumes every 1-2 hours and post void bladder scans varied from volumes of 0 to about 185 mL with tendency to have post void volume of about 100 when averaged. 2 urine samples were assessed and both were unremarkable, neither was excepted for culture. Blood cultures are pending at discharge but the patient has had no fever and no further "shaking" has been described. Macrobid was held on admission due to possible reaction to the antibiotic. Rigors, weakness, and confusion have all been reported as common side effects. Mrs. Milner was felt stable for discharge on 01/22. She reports feeling completely back to normal and her son reports she is back to being "my mother". The patient has been ambulating without difficulty, denies dyspnea, denies dysuria reports continued frequent urination. She's been afebrile. She is alert and oriented 3 today although frustrated that she does not remember the events of yesterday afternoon being described to her by her children. She moves all extremities well and power is symmetric/normal, no drift of the upper extremities. Respirations are nonlabored with clear airflow. Patient is asked to follow up with Dr. Martin in the near future for reassessment and to contact him if there is any change in level of consciousness or focal neurological symptoms. Similarly if she develops hematuria or fever he should be notified. Time spent with patient: greater than 35 minutes Discharge Plan - Med Rec/Dispo E[place] Instructions: Urinary Tract Infection in Women (GEN), Overactive Bladder (DC) Prescriptions: New Aspirin *EC* [Ecotrin] 81 mg PO DAILY tab Continue Calcium Polycarbophil [Fibercon] 2 tab PO DAILY #0 Atenolol [Tenormin] 25 mg PO DAILY Acetaminophen [Acetaminophen Extra Strength] 500 mg PO 6XD PRN PRN Reason: Arthritis NIFEdipine [Nifedipine ER] 30 mg PO DAILY #0 Gemfibrozil [Lopid] 600 mg PO BID Discontinued Nitrofurantoin Macrocrystal [Nitrofurantoin] 100 mg PO BID - Disposition 01 Discharged Home, Self-Care
[2017-01-22 17:15] VITALS: PULSE 51
== END 2017-01-22 17:30 | disposition home or self-care (01) ==
LOC: MED 14:06 → ED 14:06 → MED 17:13
PROVIDERS: ADMIT Internal Medicine; ATTEND Internal Medicine